=== PATIENT | female | born 1975 | race Caucasian/White ===

== ENCOUNTER 2019-12-10 08:45 | Outpatient (CLI) | payer BC, SELFPAY ==
--- NOTE | ~2019-12-10 | MM_ITS ---
EXAMINATION: MM screening [facility] BI w sneha HISTORY: Screening mammogram TECHNIQUE: Craniocaudal and mediolateral oblique 3-D tomosynthesis images were obtained and synthetic 2-D images were generated. CAD analysis was submitted and interpreted. COMPARISON: 09/28/2018, 08/29/2017, 05/17/2016 bilateral digital screening mammogram examinations BREAST PARENCHYMAL COMPOSITION: There are scattered areas of fibroglandular density. FINDINGS: Small benign circumscribed intramammary lymph nodes are stable on the right. There is no ev idence of suspicious mass, calcification, or architectural distortion to suggest malignancy in either breast. There has been no suspicious interval change. IMPRESSION: 1. No mammographic evidence of malignancy. 2. Recommend routine screening mammography in one year. BI-RADS Category 2: Benign finding(s). Reviewed, dictated and finalized at location A. D RANGE
== END 2019-12-10 08:46 | disposition home or self-care (01) ==
PROVIDERS: PCP Family Medicine; Visit Provider Family Medicine
DX: Z12.31 Encounter for screening mammogram for malignant neoplasm of breast (principal)
CPT/HCPCS: 77063; 77067

== ENCOUNTER 2020-07-28 13:01 | Outpatient (NON) | payer BC, SELFPAY ==
[2020-07-28 22:56] LABS: SARS-CoV-2 RNA PCR Negative
== END 2020-07-28 13:02 ==
PROVIDERS: PCP Family Medicine; Visit Provider Family Medicine
DX: Z20.828 Contact with and (suspected) exposure to other viral communicable diseases (principal); J02.9 Acute pharyngitis, unspecified; R05 Cough
CPT/HCPCS: 87635; C9803; U0003

== ENCOUNTER 2021-01-26 15:05 | Outpatient (CLI) | payer BC, SELFPAY ==
--- NOTE | ~2021-01-26 | MM_ITS ---
EXAMINATION: MM screening [facility] BI w sneha HISTORY: Screening mammogram TECHNIQUE: Craniocaudal and mediolateral oblique 3-D tomosynthesis images were obtained and synthetic 2-D images were generated. CAD analysis was submitted and interpreted. COMPARISON: 12/10/2019, 09/28/2018, 08/29/2017 BREAST PARENCHYMAL COMPOSITION: There are scattered areas of fibroglandular density. FINDINGS: Again noted are stable masses in the upper outer quadrant of the right breast, considered b enign given the lack of interval change. There is no evidence of suspicious mass, calcification, or a rchitectural distortion to suggest malignancy in either breast. There has been no suspicious interval change. IMPRESSION: 1. No mammographic evidence of malignancy. 2. Recommend routine screening mammography in one year. BI-RADS Category 2: Benign finding(s). Reviewed, dictated and finalized at location A.
== END 2021-01-26 15:06 | disposition home or self-care (01) ==
LOC: ANHIMG 15:09
PROVIDERS: PCP Nurse Practitioner Family; Visit Provider Nurse Practitioner Family
DX: Z12.31 Encounter for screening mammogram for malignant neoplasm of breast (principal)
CPT/HCPCS: 77063; 77067

== ENCOUNTER 2022-01-14 07:59 | Outpatient (CLI) | payer BC, SELFPAY ==
--- NOTE | ~2022-01-14 | XR_ITS ---
EXAMINATION: XR sacroiliac joints min 3V DATE: 01/14/2022 08:20 INDICATION: Ankylosing spondylitis TECHNIQUE: AP and left and right oblique views of the sacroiliac joints were obtained. COMPARISON: None. FINDINGS: Alignment is normal. No fracture. Bilateral hip and sacroiliac joint spaces appear normal. No erosion s to suggest inflammatory sacroiliitis. Moderate to severe bilateral lower lumbar facet osteoarthriti s. Several phleboliths in the pelvis. IMPRESSION: 1. Normal bilateral sacroiliac joints with no erosions to suggest an inflammatory sacroiliitis. 2. Moderate to severe bilateral lower lumbar facet osteoarthritis. Reviewed, dictated and finalized at location B. IMPRESSION: 1. Normal bilateral sacroiliac joints with no erosions to suggest an inflammato ry sacroiliitis. 2. Moderate to severe bilateral lower lumbar facet osteoarthritis.
--- NOTE | ~2022-01-14 | XR_ITS ---
EXAMINATION: XR knee LT 3V, XR knee RT 3V DATE: 01/14/2022 08:20 INDICATION: Ankylosing spondylitis TECHNIQUE: 1. Weight bearing anteroposterior, sunrise and flexed lateral views of the left knee were obtained 2. Weight bearing anteroposterior, sunrise and flexed lateral views of the right knee were obtained COMPARISON: None. FINDINGS: Alignment is normal at the bilateral knees. No fracture. Joint spaces are normal. Tiny marginal oste ophytes in the medial and patellofemoral compartments. No joint effusion/layering lipohemarthrosis. S oft tissues are unremarkable. IMPRESSION: 1. Minimal osteoarthritis at the bilateral knees with tiny marginal osteophytes but relatively preser dax joint spaces. Reviewed, dictated and finalized at location B. IMPRESSION: 1. Minimal osteoarthritis at the bilateral knees with tiny marginal osteophytes but relatively preserved joint spaces.
== END 2022-01-14 08:00 | disposition home or self-care (01) ==
PROVIDERS: PCP Family Medicine; Visit Provider Internal Medicine
DX: M45.9 Ankylosing spondylitis of unspecified sites in spine (principal); M77.9 Enthesopathy, unspecified; M51.36 Other intervertebral disc degeneration, lumbar region; M17.0 Bilateral primary osteoarthritis of knee
CPT/HCPCS: 72202; 73562

== ENCOUNTER 2022-10-14 14:00 | Outpatient (CLI) | payer BC, SELFPAY ==
--- NOTE | 2022-10-14 14:09 | ECHO_ITS ---
Patient Info Name: Jeannie Jonas Age: 47 years : 1975 Gender: Female Ht: 66 in Wt: 235 lbs BSA: 2.28 m2 HR: 65 bpm BP: 120 / 82 mmHg Technical Quality: Good Exam Date: 10/14/2022 2:31 PM Exam Location: [facility] Patient Status: Outpatient Admit Date: 10/14/2022 Staff Ordering Physician: Yoko Gray NP Licensed Appraiser: Stephanie Merchant RDCS Attending Provider: Yoko Gray NP Referring Physician: Marina COLE; Exam Type: CA echo doppler color flow Study Info Indications R60.0 - Localized edema Complete two-dimensional, color flow and Doppler transthoracic echocardiogram is performed. Summary 1. Complete two-dimensional, color flow and Doppler transthoracic echocardiogram is performed. 2. Left ventricular chamber dimension is normal. 3. Left ventricular systolic function is normal, estimated at 65-70%. 4. The left ventricular diastolic function is grade I diastolic dysfunction. 5. E/e' 6 is not elevated. 6. Left atrial chamber dimension is mildly enlarged. 7. There is mild aortic valve sclerosis. 8. The mitral valve has mildly calcified annulus. 9. There is trace mitral valve regurgitation. Left Ventricle E/e' 6 is not elevated. Left ventricular chamber dimension is normal. Left ventricular systolic function is normal, estimated at 65-70%. The left ventricular diastolic function is grade I diastolic dysfunction. Right Ventricle Right ventricular systolic function is normal and with normal TAPSE 1.7 cm. Right ventricular chamber dimension is normal. Left Atria Left atrial chamber dimension is mildly enlarged. Right Atria Right atrial chamber dimension is normal. Aortic Valve The aortic valve is trileaflet. There is mild aortic valve sclerosis. There is no aortic valve stenosis. There is no aortic valve regurgitation. Pulmonic Valve There is no pulmonic regurgitation. Mitral Valve The mitral valve has mildly calcified annulus. There is no mitral valve stenosis. There is trace mitral valve regurgitation. Tricuspid Valve There is no tricuspid valve regurgitation. Pericardium/Pleural There is no pericardial effusion. Inferior Vena Cava Normal inferior vena cava with >50% collapse upon inspiration consistent with normal right atrial pressure, 5 mmHg. Aorta The aortic root size at the sinus of Valsalva is normal. Left Ventricular Outflow Tract Name Value Normal LVOT 2D LVOT Diameter 2.0 cm LVOT Doppler LVOT Peak Gradient 4 mmHg LVOT Mean Gradient 2 mmHg LVOT VTI 23 cm LVOT VTI/AV VTI Ratio 0.9 LVOT Stroke Volume 70 ml LVOT CO 4.8 l/min LVOT CI 2.1 l/min/m2 Mitral Valve Name Value Normal MV Doppler
== END 2022-10-14 14:01 | disposition home or self-care (01) ==
PROVIDERS: PCP Family Medicine; Visit Provider Nurse Practitioner Family
DX: R60.0 Localized edema (principal)
CPT/HCPCS: 93306

== ENCOUNTER 2022-11-05 03:18 | Day surgery (SDC) | payer BC, SELFPAY ==
[2022-10-20 12:03] VITALS: BMI 38.0
[2022-11-05 08:14] VITALS: BP 132/75; PULSE 69; RESP 18; TEMP 36.6; O2SAT 98
[2022-11-05] MEDS: LACTATED RINGERS 1,000 ML 150 ML IV CONT (08:17)
--- NOTE | 2022-11-05 08:35 | WPDANESEPPF ---
Anes - Initial Pre Proc Eval Procedure: Operation Date: 11/05/22 09:15 Proposed Procedures p Colonoscopy - Alejandro Thibodeaux MD Date/Time: 11/05/22 08:35 Surgeon: Alejandro Thibodeaux MD Pre Op Diagnosis: melena Patient Data Age: 47 Gender: F Height: 1.68 m Weight: 105.3 kg Last Vital Signs Temp 36.6 C 11/05/22 08:14 Pulse 69 11/05/22 08:14 Resp 18 11/05/22 08:14 BP 132/75 11/05/22 08:14 Pulse Ox 98 11/05/22 08:14 O2 Del Method Room Air 11/05/22 08:14 Allergies Allergy/AdvReac Type Severity Reaction Status Date / Time No Known Allergies Allergy Verified 11/05/22 08:13 Home Medications Medication Instructions Recorded Confirmed Type cetirizine 10 mg capsule (Zyrtec) 10 mg PO DAILY 02/15/20 11/05/22 History meloxicam 7.5 mg tablet 7.5 mg PO DAILY 01/05/22 11/05/22 History multivitamin-ferrous 1 tablet PO DAILY 10/20/22 11/05/22 History fumarate-folic acid 18 mg-400 mcg tablet (Centrum Women) psyllium husk 3.4 gram/5.4 gram 2 tbsp PO DAILY 10/20/22 11/05/22 History oral powder (Metamucil) Patient hx anesthesia problems: none Family hx anesthesia problems: none Results Review: All pre-operative results and documents have been reviewed as part of the pre-operative evaluation. [facility] Past Medical History Medical History (Updated 10/22/22 @ 13:53 by Yoko Gray NP) Ankylosing spondylitis right hip GERD without esophagitis History of shingles (~2014) Hyperlipidemia Obesity Surgical History Surgical History History of low transverse section (~2010) Family History Family History Sibling Natural with unknown cause, Onset Age: 43 h/o DM, tobacco use, obesity, h/a Sibling Colon polyp, Onset Age: 53 Father Cerebrovascular accident Mother Family history of arthritis Sibling Family history of diabetes mellitus in first degree relative Social History Social History (Updated 09/24/22 @ 12:59 by Enriqueta Mcarthur [facility]) Smoking status: Never smoker Second hand tobacco smoke exposure: No Additional smoking assessment comments: lived with a chain smoker Alcohol intake: current Drinks per week: 6 Substance use: never Substance use type: does not use Lack of Transportation: No Lack of Food: Never True Current Housing: I Have Housing Concerned About Future Housing: No Difficulty Paying Gas/Electric Bills: No Difficulty Paying for Meds: No Currently Unemployed: No Education: Decline to Answer Difficulty w/ Childcare or Family Care: No Living arrangements: with family 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/Education: 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 Informed Consent: The patient's anesthetic plan and its attendant risks and benefits were discussed with the patient/family/POA. Questions were solicited and answers provided to the satisfaction of the patient/family/POA.
--- NOTE | 2022-11-05 09:01 | PM.HPGS ---
History of Present Illness History of Present Illness Consent: Risks, benefits, and alternatives have been discussed and questions answered. Patient agrees to proceed with procedure. Chief complaint: melena Narrative: Jeannie Jonas is a 47 year old female here for first colonoscopy, also noted few times blood in stool Review of Systems Constitutional: Constitutional: Denies headache(s) and Denies weakness Eyes: Eyes: Denies blurry vision ENT: Reports Normal hearing present, Denies headache(s) and Denies neck pain Cardiovascular: Cardiovascular: Denies chest pain and Denies dyspnea Respiratory: Respiratory: Denies dyspnea Gastrointestinal: Gastrointestinal: Reports no additional gastrointestinal complaints Genitourinary: Genitourinary: Denies dysuria Musculoskeletal: Musculoskeletal: Denies neck pain Integumentary/Breasts: Skin/Breast: Denies dry skin Neurologic: Reports Normal hearing present, Denies headache(s) and Denies weakness Psychiatric: Psychiatric: Denies anxiety Endocrine: Endocrine: Denies change in body appearance Hematologic/Lymphatic: Hematologic/Lymphatic: Denies easy bleeding Allergic/Immunologic: Allergic/Immunologic: Denies urticaria PMF Past Medical History Medical History (Updated 11/05/22 @ 09:02 by Alejandro Thibodeaux MD) Ankylosing spondylitis right hip Colon cancer screening GERD without esophagitis History of shingles (~2014) Hyperlipidemia Obesity Rectal bleeding Surgical History Surgical History History of low transverse section (~2010) Family History Family History Sibling Natural with unknown cause, Onset Age: 43 h/o DM, tobacco use, obesity, h/a Sibling Colon polyp, Onset Age: 53 Father Cerebrovascular accident Mother Family history of arthritis Sibling Family history of diabetes mellitus in first degree relative Social History Social History (Updated 09/24/22 @ 12:59 by Enriqueta Mcarthur [facility]) Smoking status: Never smoker Second hand tobacco smoke exposure: No Additional smoking assessment comments: lived with a chain smoker Alcohol intake: current Drinks per week: 6 Substance use: never Substance use type: does not use Lack of Transportation: No Lack of Food: Never True Current Housing: I Have Housing Concerned About Future Housing: No Difficulty Paying Gas/Electric Bills: No Difficulty Paying for Meds: No Currently Unemployed: No Education: Decline to Answer Difficulty w/ Childcare or Family Care: No Living arrangements: with family Occupation/Education: occupation 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 Gender identity (if verbalized by the patient): Female Spiritual care concerns: No Meds Home Medications and Allergies Home Medications Medication Instructions Recorded Confirmed Type cetirizine 10 mg capsule (Zyrtec) 10 mg PO DAILY 02/15/20 11/05/22 History meloxicam 7.5 mg tablet 7.5 mg PO DAILY 01/05/22 11/05/22 History multivitamin-ferrous 1 tablet PO DAILY 10/20/22 11/05/22 History fumarate-folic acid 18 mg-400 mcg tablet (Centrum Women) psyllium husk 3.4 gram/5.4 gram 2 tbsp PO DAILY 10/20/22 11/05/22 History oral powder (Metamucil) Allergies Allergy/AdvReac Type Severity Reaction Status Date / Time No Known Allergies Allergy Verified 11/05/22 08:13 Vital Signs Vital Signs - 24 hr 11/05/22 08:14 Temperature 98 F Pulse Rate 69 Respiratory Rate 18 Blood Pressure 132/75 Pulse Oximetry 98 Oxygen Delivery Room Air Exam Const: General: comfortable and no acute distress HENMT: Face/Nose/Sinus: Normal nares present Eyes: General: appearance normal, both eyes and all related structures Neck: Neck: no JVD Resp: Auscultation: clear to auscultation bilaterally Cardio: Rate:
[2022-11-05 09:25] VITALS: BP 97/51; PULSE 74; RESP 20; O2SAT 96
[2022-11-05 09:35] VITALS: BP 107/59; PULSE 64; RESP 20; O2SAT 99
[2022-11-05 09:45] VITALS: BP 111/62; PULSE 58; RESP 20; O2SAT 99
== END 2022-11-05 09:51 | disposition home or self-care (01) ==
PROVIDERS: PCP Family Medicine; Visit Provider Internal Medicine Gastroenterology
PROC: 0DJD8ZZ Inspection of Lower Intestinal Tract, Via Natural or Artificial Opening Endoscopic (ICD-10-PCS; CPT 45378; principal; 2022-11-05 09:15)
DX: Z12.11 Encounter for screening for malignant neoplasm of colon (principal); K92.1 Melena; K57.30 Diverticulosis of large intestine without perforation or abscess without bleeding; K63.5 Polyp of colon; K64.8 Other hemorrhoids; E78.5 Hyperlipidemia, unspecified; K21.9 Gastro-esophageal reflux disease without esophagitis; E66.9 Obesity, unspecified; Z68.37 Body mass index [BMI] 37.0-37.9, adult
CPT/HCPCS: 45385; 88305; J2001; J2704; J7120

== ENCOUNTER 2022-11-15 07:20 | Outpatient (CLI) | payer BC, SELFPAY ==
--- NOTE | ~2022-11-15 | MM_ITS ---
EXAMINATION: MM screening [facility] BI w sneha HISTORY: Screening mammogram TECHNIQUE: Craniocaudal and mediolateral oblique 3-D tomosynthesis images were obtained and synthetic 2-D images were generated. CAD analysis was submitted and interpreted. COMPARISON: 01/26/2021, 12/10/2019, 09/28/2008 screening mammogram examinations BREAST PARENCHYMAL COMPOSITION: There are scattered areas of fibroglandular density. FINDINGS: There are 2 benign circumscribed intramammary lymph nodes in the mid to upper outer right b reast. There is no evidence of suspicious mass, calcification, or architectural distortion to suggest malignancy in either breast. There has been no suspicious interval change. IMPRESSION: 1. No mammographic evidence of malignancy. 2. Recommend routine screening mammography in one year. BI-RADS Category 2: Benign finding(s). Reviewed, dictated and finalized at location A. OM SCRUBBER
== END 2022-11-15 07:21 | disposition home or self-care (01) ==
LOC: ANHIMG 07:24
PROVIDERS: PCP Family Medicine; Visit Provider Nurse Practitioner Family
DX: Z12.31 Encounter for screening mammogram for malignant neoplasm of breast (principal)
CPT/HCPCS: 77063; 77067

== ENCOUNTER 2023-05-23 08:15 | Outpatient (CLI) | payer BC, SELFPAY ==
[2023-05-23 12:10] LABS: Kit Draw Collected
== END 2023-05-23 08:16 | disposition home or self-care (01) ==
LOC: ANHGOSHLAB 08:18
PROVIDERS: PCP Family Medicine; Visit Provider Nurse Practitioner Family
DX: R00.2 Palpitations (principal); E78.5 Hyperlipidemia, unspecified
CPT/HCPCS: 36415

== ENCOUNTER 2023-08-23 10:57 | Emergency (ER) | payer BC, SELFPAY ==
--- NOTE | ~2023-08-23 | XR_ITS ---
EXAMINATION: XR tibia fibula LT 2V DATE: 08/23/2023 15:40 INDICATION: Left lower leg pain. TECHNIQUE: 2 views of left tibia and fibula were obtained. COMPARISON: None. FINDINGS: Bone alignment is normal. No fracture. There is mild tricompartmental osteoarthritis of the knee. IMPRESSION: 1. Mild left knee osteoarthritis. Reviewed, dictated and finalized at location A. RICT OR DISTRICT OFFICE DIRECTOR
--- NOTE | ~2023-08-23 | US_ITS ---
US venous doppler [facility] DATE: 08/23/2023 12:07 INDICATION: Left leg pain TECHNIQUE: Real-time and color flow imaging and Doppler analysis of the veins of the left lower extre mity COMPARISON: None FINDINGS: Left greater saphenous vein is patent. There is spontaneous and phasic flow and normal augm entation and color flow signal and normal compression of the deep veins of the left lower extremity. IMPRESSION: No evidence of deep venous thrombosis of left lower extremity Reviewed, dictated and finalized at Location A. Reviewed, dictated and finalized at location L. NUE MANAGER
[2023-08-23 11:02] VITALS: BP 141/63; PULSE 90; RESP 18; TEMP 36.5; O2SAT 97
--- NOTE | 2023-08-23 15:27 | ED.GENADULT ---
HPI - General Adult General Chief complaint: Extremity Injury, Lower Stated complaint: pain in left leg Time Seen by Provider: 08/23/23 14:50 Source: patient Limitations: no limitations History of Present Illness HPI narrative: Patient is a 48-year-old female presents to the emergency department complaining of left calf pain that she noticed this morning gradually has been intermittent since onset, describes it as a severe pain, has had no setting for cannot make it go away, has not started for the pain, denies any history of pain in the past patient denies any preceding injury or strenuous activity. Patient has been ambulatory without any difficulty. Patient states that apparently after does not radiate. Patient denies fever, numbness, weakness, pain in her house trauma history of blood clots, unilateral lower extremity swelling. Related Data Home Medications Medication Instructions Recorded Confirmed cetirizine 10 mg capsule (Zyrtec) 10 mg PO DAILY 02/15/20 11/19/22 meloxicam 7.5 mg tablet 7.5 mg PO DAILY 01/05/22 11/19/22 multivitamin-ferrous 1 tablet PO DAILY 10/20/22 11/19/22 fumarate-folic acid 18 mg-400 mcg tablet (Centrum Women) psyllium husk 3.4 gram/5.4 gram 2 tbsp PO DAILY 10/20/22 11/19/22 oral powder (Metamucil) Allergies Allergy/AdvReac Type Severity Reaction Status Date / Time No Known Allergies Allergy Verified 08/23/23 11:07 Review of Systems Review of Systems: A 10 system review of systems was completed on the patient and is negative except for what is stated in the HPI. Nursing and ancillary documentation was reviewed. [facility] Past Medical History Medical History Ankylosing spondylitis right hip Colon cancer screening GERD without esophagitis History of shingles (~2014) Hyperlipidemia Obesity Rectal bleeding Surgical History Surgical History History of low transverse section (~2010) Family History Family History Sibling Natural with unknown cause, Onset Age: 43 h/o DM, tobacco use, obesity, h/a Sibling Colon polyp, Onset Age: 53 Father Cerebrovascular accident Mother Family history of arthritis Sibling Family history of diabetes mellitus in first degree relative Social History Social History Smoking status: Never smoker Second hand tobacco smoke exposure: No Additional smoking assessment comments: lived with a chain smoker Alcohol intake: current Drinks per week: 6 Substance use: never Substance use type: does not use Lack of Transportation: No Lack of Food: Never True Current Housing: I Have Housing Concerned About Future Housing: No Difficulty Paying Gas/Electric Bills: No Difficulty Paying for Meds: No Currently Unemployed: No Education: Decline to Answer Difficulty w/ Childcare or Family Care: No Living arrangements: with family Occupation/Education: occupation 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 Please see the nursing chart for further information. There is no relevant family history pertinent to the presenting complaint. Exam Narrative: CONST: No acute distress. Well nourished. HENMT: Head is normocephalic and atraumatic. Moist mucous membranes. RESP: Able to speak in full sentences. Normal respiratory effort. CARDIO: Regular rate. Regular rhythm. 2+ DP pulses bilaterally. SKIN: No rashes or lesions noted on exposed skin. NEURO: Oriented x3. Moves all extremities. Sensation intact to light touch throu
[2023-08-23] MEDS: ACETAMINOPHEN 500 MG TABLET 1000 MG PO (15:42)
--- NOTE | 2023-08-23 15:43 | PC.NURSE ---
tylenol given per order. waiting official result of xray. pt denies pain at this time. states leg was throbbing earlier.
== END 2023-08-23 16:13 | disposition home or self-care (01) ==
PROVIDERS: Emergency Provider Student in an Organized Health Care Education/Training Program; PCP Family Medicine
DX: M79.662 Pain in left lower leg (principal); E78.5 Hyperlipidemia, unspecified
CPT/HCPCS: 73590; 93971; 99284; A9270

== ENCOUNTER 2023-08-31 08:22 | Outpatient (CLI) | payer BC, SELFPAY ==
[2023-08-31 12:20] LABS: Alanine Aminotransferase 24 U/L (6-35); Albumin Level 4.3 g/dL (3.5-5.1); Alkaline Phosphatase 65 U/L (38-126); Aspartate Amino Transferase 24 U/L (14-36); Bilirubin,Total 0.6 mg/dL (0.2-1.3)
== END 2023-08-31 08:23 | disposition home or self-care (01) ==
LOC: ANHGOSHLAB 08:25
PROVIDERS: PCP Family Medicine
DX: B35.1 Tinea unguium (principal)
CPT/HCPCS: 36415; 80076

== ENCOUNTER 2023-10-17 14:07 | Outpatient (CLI) | payer BC, SELFPAY ==
[2023-10-17 20:27] LABS: Alanine Aminotransferase 25 U/L (6-35); Albumin Level 4.4 g/dL (3.5-5.1); Alkaline Phosphatase 75 U/L (38-126); Aspartate Amino Transferase 28 U/L (14-36); Bilirubin,Total 0.3 mg/dL (0.2-1.3)
== END 2023-10-17 14:08 | disposition home or self-care (01) ==
LOC: ANHGOSHLAB 14:09
PROVIDERS: PCP Family Medicine; Visit Provider Podiatrist Foot & Ankle Surgery
DX: B35.1 Tinea unguium (principal)
CPT/HCPCS: 36415; 80076

== ENCOUNTER 2023-10-20 14:31 | Outpatient (CLI) | payer BC, SELFPAY ==
--- NOTE | 2023-10-20 14:49 | ECHO_ITS ---
Patient Info Name: Jeannie Jonas Age: 48 years : 1975 Gender: Female Ht: 66 in Wt: 225 lbs BSA: 2.22 m2 HR: 74 bpm BP: 127 / 86 mmHg Heart Rhythm: Sinus Rhythm Technical Quality: Good Exam Date: 10/20/2023 3:10 PM Exam Location: Echo Lab Patient Status: Outpatient Admit Date: 10/20/2023 Staff Ordering Physician: Levi White DO Feather Shaper: Luis E Garcia RDCS Attending Provider: Levi White DO Referring Physician: Christopher BORGES; Exam Type: CA echo doppler color flow Study Info Indications - sclertoic aortic valve Complete two-dimensional, color flow and Doppler transthoracic echocardiogram is performed. Summary 1. Complete two-dimensional, color flow and Doppler transthoracic echocardiogram is performed. 2. Left ventricular chamber dimension is normal. 3. Left ventricular systolic function is normal, estimated at 60-65%. 4. The left ventricular diastolic function is normal. 5. E/e' 9 is minimally elevated. 6. Left atrial chamber dimension is mildly enlarged. 7. There is mild aortic valve sclerosis. 8. There is trace mitral valve regurgitation. 9. There is trace tricuspid valve regurgitation. 10. No pulmonary hypertension, estimated pulmonary arterial systolic pressure is 24 mmHg. Left Ventricle E/e' 9 is minimally elevated. Left ventricular chamber dimension is normal. Left ventricular systolic function is normal, estimated at 60-65%. The left ventricular diastolic function is normal. Right Ventricle Right ventricular systolic function is normal and with normal TAPSE 2.3 cm. Right ventricular chamber dimension is normal. Left Atria Left atrial chamber dimension is mildly enlarged. Right Atria Right atrial chamber dimension is normal. Aortic Valve The aortic valve is trileaflet. There is mild aortic valve sclerosis. There is no aortic valve stenosis. There is no aortic valve regurgitation. Pulmonic Valve There is no pulmonic regurgitation. Mitral Valve There is no mitral valve stenosis. There is trace mitral valve regurgitation. Tricuspid Valve There is trace tricuspid valve regurgitation. No pulmonary hypertension, estimated pulmonary arterial systolic pressure is 24 mmHg. Pericardium/Pleural There is no pericardial effusion. Inferior Vena Cava Normal inferior vena cava with >50% collapse upon inspiration consistent with normal right atrial pressure, 5 mmHg. Aorta The aortic root size at the sinus of Valsalva is normal. Left Ventricular Outflow Tract Name Value Normal LVOT 2D LVOT Diameter 2.0 cm LVOT Doppler LVOT Peak Gradient 4 mmHg LVOT Mean Gradient 2 mmHg LVOT VTI 23 cm LVOT VTI/AV VTI Ratio 0.7 LVOT Stroke Volume 71 ml LVOT CO 5.3 l/min LVOT CI 2.4 l/min/m2 Pulmonic Valve Name Value Normal RVOT Doppler
== END 2023-10-20 14:32 | disposition home or self-care (01) ==
PROVIDERS: PCP Family Medicine; Visit Provider Internal Medicine Cardiovascular Disease
DX: I35.8 Other nonrheumatic aortic valve disorders (principal)
CPT/HCPCS: 93306

== ENCOUNTER → 2023-11-24 07:10 | Outpatient (CLI) | payer BC, SELFPAY ==
--- NOTE | ~2023-11-24 | MM_ITS ---
EXAMINATION: MM screening [facility] BI w sneha HISTORY: Screening mammogram TECHNIQUE: Craniocaudal and mediolateral oblique 3-D tomosynthesis images were obtained and synthetic 2-D images were generated. CAD analysis was submitted and interpreted. COMPARISON: 11/15/2022, 01/26/2021, 12/10/2019 BREAST PARENCHYMAL COMPOSITION: There are scattered areas of fibroglandular density. FINDINGS: Stable masses are again noted in the upper outer quadrant of the right breast, considered b enign given the lack of interval change. No suspicious mass, calcification, or architectural distorti on are identified in either breast to suggest malignancy. There has been no suspicious interval martínez e. IMPRESSION: 1. No mammographic evidence of malignancy. 2. Recommend routine screening mammography in one year. BI-RADS Category 2: Benign finding(s). Reviewed, dictated and finalized at location A. AGE WRAPPER
== END ==
PROVIDERS: PCP Family Medicine; Visit Provider Family Medicine
DX: Z12.31 Encounter for screening mammogram for malignant neoplasm of breast (principal)
CPT/HCPCS: 77063; 77067

== ENCOUNTER 2024-07-25 08:10 | Outpatient (CLI) | payer BC, SELFPAY ==
--- NOTE | ~2024-07-25 | US_ITS ---
EXAMINATION: US soft tissue chest DATE: 07/25/2024 08:23 INDICATION: Cyst with increasing palpable lump near the tip of the sternum TECHNIQUE: Multiple grayscale and Doppler ultrasound images of the subcutaneous tissues at the region of concern overlying the xiphoid were obtained. COMPARISON: None FINDINGS: There is an 8 x 6 x 7 mm mixed hypoechoic and anechoic complex cystic lesion with posterior acoustic enhancement centered at the dermal/subdermal junction at the region of concern. There is vascular tori w on color Doppler at the periphery of the lesion without definitive color flow within the central hy poechoic components. There is a subtle hypoechoic tract extending towards the skin surface which woul d be most consistent with an epidermoid cyst/sebaceous cyst. IMPRESSION: 1. Superficial 8 x 6 x 7 mm complex subcutaneous cystic lesion with tract extending to skin surface m ost consistent with an epidermoid/sebaceous cyst with differential including draining abscess in the appropriate clinical setting. Reviewed, dictated and finalized at location A. IMPRESSION: 1. Superficial 8 x 6 x 7 mm complex subcutaneous cystic lesion with tract exten ding to skin surface most consistent with an epidermoid/sebaceous cyst with dif ferential including draining abscess in the appropriate clinical setting.
== END 2024-07-25 08:11 | disposition home or self-care (01) ==
LOC: GOSHIMG 08:11
PROVIDERS: PCP Family Medicine; Visit Provider Nurse Practitioner Family
DX: L72.9 Follicular cyst of the skin and subcutaneous tissue, unspecified (principal)
CPT/HCPCS: 76604

== ENCOUNTER 2024-07-25 08:27 | Outpatient (CLI) | payer BC, SELFPAY ==
[2024-07-25 16:50] LABS: Basophils Absolute Auto 0.1 K/mm3 (0.0-0.1); Eosinophils Absolute Auto 0.4 K/mm3 (0-0.3); Eosinophils Percent Auto 5.9 % (0-4.4); Hematocrit 41.6 % (37.0-47.0); Hemoglobin 13.7 g/dL (12.0-15.0); Immature Granulocyte Absolute 0.02 K/mm3 (0.00-0.031); Immature Granulocyte Percent A 0.3 % (0-0.5); Lymphocytes Absolute Auto 1.35 K/mm3 (0.9-3.2); Lymphocytes Percent Auto 22.7 % (18.3-44.2); Mean Corpuscular HGB Conc 32.9 g/dl (32-36); Mean Corpuscular Hemoglobin 29.5 pg (26-34); Mean Corpuscular Volume 89.7 fl (80-100); Mean Platelet Volume 11.6 fl (7.4-10.4); Monocytes Absolute Auto 0.5 K/mm3 (0.1-0.6); Monocytes Percent Auto 7.6 % (2.6-8.5); Neutrophils Absolute Auto 3.7 K/mm3 (1.3-6.7); Neutrophils Percent Auto 62.5 % (45.5-73.1); Platelet Count Result 236 k/mm3 (150-375); Red Blood Count 4.64 M/mm3 (4.2-5.4); Red Cell Distribution Width 13.8 % (11.5-14.5)
[2024-07-25 17:11] LABS: Vitamin D 25 Hydroxy 64.2 ng/mL
[2024-07-25 17:20] LABS: Hemoglobin A1C 5.7 % (<5.7)
[2024-07-25 19:17] LABS: Alanine Aminotransferase 27 U/L (6-35); Albumin Level 4.3 g/dL (3.5-5.1); Alkaline Phosphatase 74 U/L (38-126); Anion Gap 11 mmol/L (4-12); Aspartate Amino Transferase 31 U/L (14-36); Bilirubin,Total 0.6 mg/dL (0.2-1.3); Blood Urea Nitrogen 15 mg/dL (7-17); Calcium 9.6 mg/dL (8.4-10.2); Carbon Dioxide 23 mmol/L (22-30); Chloride 105 mmol/L (98-107); Cholesterol 222 mg/dL (0-200); Estimated Glomerular Filt Rate > 60; Glucose 93 mg/dL (65-110); HDL Direct 51 mg/dL; Potassium 4.3 mmol/L (3.4-5.0); Sodium 139 mmol/L (137-145); Triglycerides 134 mg/dL (<150)
[2024-07-25 19:27] LABS: LDL Cholesterol Direct 114 mg/dL
== END 2024-07-25 08:28 | disposition home or self-care (01) ==
LOC: ANHGOSHLAB 08:29
PROVIDERS: PCP Family Medicine; Visit Provider Nurse Practitioner Family
DX: Z00.00 Encounter for general adult medical examination without abnormal findings (principal); E78.5 Hyperlipidemia, unspecified; E55.9 Vitamin D deficiency, unspecified; R73.01 Impaired fasting glucose
CPT/HCPCS: 36415; 80053; 80061; 82306; 83036; 84443; 85025

== ENCOUNTER 2024-12-28 12:00 | Outpatient (CLI) | payer BC, SELFPAY ==
--- NOTE | ~2024-12-28 | MM_ITS ---
EXAMINATION: MM screening ryne BI w sneha HISTORY: Screening TECHNIQUE: Craniocaudal and mediolateral oblique 3-D tomosynthesis images were obtained and synthetic 2-D images were generated. CAD analysis was submitted and interpreted. COMPARISON: Comparison to multiple prior studies sequentially, with oldest reviewed study dated 08/11. BREAST PARENCHYMAL COMPOSITION: There are scattered areas of fibroglandular density. FINDINGS: There is no evidence of suspicious mass, calcification, or architectural distortion to sugg est malignancy in either breast. There has been no suspicious interval change. IMPRESSION: 1. No mammographic evidence of malignancy. 2. Recommend routine screening mammography in one year. BI-RADS Category 1: Negative Reviewed, dictated and finalized at location B.
== END 2024-12-28 12:01 | disposition home or self-care (01) ==
LOC: MICIMG 12:08
PROVIDERS: PCP Nurse Practitioner Family; Visit Provider Nurse Practitioner Family
DX: Z12.31 Encounter for screening mammogram for malignant neoplasm of breast (principal)
CPT/HCPCS: 77063; 77067

== ENCOUNTER 2025-03-11 16:53 | Outpatient (CLI) | payer BC, SELFPAY ==
--- OUTSIDE RECORDS SUMMARY | 2025-03-11 16:55 | XMS_ITS ---
Author Organization [facility] Address [address] [place], [place] [id number] Care Team Providers Care Heliotherapist Name Role Phone OVIDIO BERUMEN Unavailable [phone] Bryan Morrissey Unavailable Unavailable REASON FOR VISIT The patient reports that the cortisone injection helped her foot pain immensely. She wants her orthotics shortened so they work better under the liners in her HOKAS. She is also requesting more topical antifungal medication for her toenail.s, Lastly, she is wondering if Physical Therapy could help with her gait Medications Medication SIG (Take, Route, Frequency, Duration) Notes Start Date End Date Status ciclopirox 80 MG/ML Topical Solution ciclopirox 80 MG/ML Topical SolutionOriginal Medicationciclopirox 80 MG/ML Topical Solution *Reorder from [facility] for eRx and Interaction Alerts* 7 Active Medrol Dosepak ORAL Medrol DosepakOr iginal MedicationMedrol Dosepak *Reorder from [facility] for eRx and Interaction Alerts* 9 Active Ciclopirox 8 % 1 application Externally Once a day to toenails. for 30 days Remove medication weekly with rubbing alcohol. one bottle, 6.6mL or similar 5 025 Active terbinafine 250 MG Oral Tablet ORAL terbinafine 250 MG Oral TabletOriginal Medicationterbinafine 250 MG Oral Tablet *Reorder from [facility] for eRx and Interaction Alerts* 9 Active methylPREDNISolone 4 MG as directed Orally one pack 4 Active Vital Signs Height 66.00 in 01/14/2025 Weight 225 lbs 01/14/2025 BMI 36.31 kg/m2 01/14/2025 Height-cm 167.64 cm 01/14/2025 Weight-kg 102.06 kg 01/14/2025 Encounters Encounter Location Date Provider Diagnosis [facility] [address] [place], [place] [id number] 01/14/2025 OVIDIO SNOOK Pain in left ankle and joints of left foot M25.572 ; Posterior tibial tendinitis, left leg M76.822 ; Left foot pain M79.672 and Tinea unguium B35.1 Assessments Encounter Date Diagnosis (ICD Code) Assessment Notes Treatment Notes Treatment Clinical Notes Section Notes 01/14/2025 Pain in left ankle and joints of left foot (ICD-10 - M25.572) Sinus Tarsi Syndrome: I discussed anti-inflammatory treatment options and various means of immobilization with the patient. I educated the patient on icing and stretching, supportive shoegear, and the use of orthotic devices and bracing. Physical therapy ordered b 01/14/2025 Posterior tibial tendinitis, left leg (ICD-10 - M76.822) Posterior Tibialis Tendon Dysfunction: I discussed anti-inflammatory treatment options and various means of immobilization with the patient. I educated the patient on icing and stretching, supportive shoegear, and the use of orthotic devices and bracing. Orthotic Continue: Advised patient to continue to wear orthotic devices. b 01/14/2025 Left foot pain (ICD-10 - M79.672) b 01/14/2025 Tinea unguium (ICD-10 - B35.1) FUNGAL TOENAILS: Discussed various treatment options for fungal toenails including debridement, topical antifungals, oral antifungals, toenail avulsion, or toenail matrixectomy. b Plan Of Treatment Medication Medication Name Sig Start Date Stop Date Notes Ciclopirox 8 % 1 application Vacuum Cleaner Mechanic ally Once a day to toenails. for 30 days 01/14/2025 07/13/2025 one bottle, 6.6mL or similar Treatment Notes Assessment Notes Pain in left ankle and joint s of left foot Sinus Tarsi Syndrome: I discussed anti-inflammatory treatment options and various means of immobilization with the patient. I educated the patient on icing and stretching, supportive shoegear, and the use of orthotic devices and bracing. Physical therapy ordered Posterior tibial tendinitis, left leg Posterior Tibialis Tendon Dysfunction: I discussed anti-inflammatory treatment options and various means of immobilization with the patient. I educated the patient on icing and stretching, supportive shoegear, and the use of orthotic devices and bracing. Orthotic Continue: Advised patient to continue to wear orthotic devices. Tinea unguium FUNGAL TOENAILS: Dis cussed various treatment options for fungal toenails including debridement, topical antifungals, oral antifungals, toenail avulsion, or toenail matrixectomy. Next Appt Details Follow Up: prn, Reason: Progress Notes * MARY DELANEYEEDOB:03/1975 (49 yo F)Acc No.[id number]:01/14/2025 Patient: MARY GUSMAN Provider: Andria Berumen DPM :1975 A ge:49 Y S ex:Female Date:01/14/2025 Address:[address] [place] [address] Subjective: * Chief Complaints: * 1 . The patient reports that the cortisone injection helped her foot pain immensely. She wants her orthotics shortened so they work better under the liners in her HOKAS. She is also requesting more topical antifungal medication for her toenail.s. 2. Lastly, she is wondering if Physical Therapy could help with her gait. * HPI: H PI: Follow Up Visit Gary jane presents for follow-up visit for left foot injection. Patient states that she is feeling a huge improvement. She states that she is still having some slight pain, but it is nothing like it was before. She is happy with how it is feeling. , MA: phil. * ROS: G eneral / Constitutional: Patient denies c hills, fever, weakness, night sweats. M usculoskeletal: Patient denies c hildhood foot problems, weakness. P atva complains of h eel pain, arch pain, orthotic use. P eripheral Vascular: Patient denies u lceration of feet, cold extremities. ? S kin: Patient denies u lcerations, discoloration. P atient complains of f ungal nails, nail changes. N eurologic: Patient denies b alance difficulty, confusion, difficulty speaking, dizziness. * Medical History: * Family History: F ather: PRN - Father: :: Foot problem,,known absent , :: Stroke,,known absent , :: Arthritis,,known absent , :: Diabetes,,known absent . M other: PRN - Mother: :: Arthritis,,known absent . Brother: SIB - Brother: . S ister: SIB - Sister: :: of unknown cause,,known absent , :: Foot problem,,known absent . * Social History: M igrated Social History: M igrated Social History: Smoking Status : Never smoked , History of tobacco use : , Alcohol intake :. * Medications: T aking ciclopirox 80 MG/ML Topical Solution , Notes to Pharmacist: ciclopirox 80 MG/ML Topical SolutionOriginal Medicationciclopirox 80 MG/ML Topical Solution *Reorder from [facility] for eRx and Interaction Alerts*, Taking Medrol Dosepak ORAL , Notes to Pharmacist: Medrol DosepakOriginal MedicationMedrol Dosepak *Reorder from [facility] for eRx and Interaction Alerts*, Taking terbinafine 250 MG Oral Tablet ORAL , Notes to Pharmacist: terbinafine 250 MG Oral TabletOriginal Medicationterbinafine 250 MG Oral Tablet *Reorder from [facility] for eRx and Interaction Alerts*, Taking methylPREDNISolone 4 MG Tablet Therapy Pack as directed Orally , Notes to Pharmacist: one pack, Medication List reviewed and reconciled with the patient Objective: * Vitals: S hoe Size: 10, Wt:225lbs, Wt-k.06 kg, Ht: 66.00 in, Ht-cm: 167.64 cm, BMI:36.31Index, Body Surface Area: 2.18. * Examination: C onstitutional: Constitutional T he patient is awake, alert, well developed, well groomed and well nourished. D ermatologic: Skin findings: S kin is warm, dry, supple with no breaks in the skin. Nail pathology: N ails 1-5 bilateral are elongated, thick, discolored, and dystrophic with subungual debris. They are painful to palpation. ? V ascular: Dorsalis pedis pulse: 2 /4, bilateral. Posterior tibial pulse: 2 /4, bilateral. Capillary refill: l ess than 3 seconds. Edema: N o edema, bilateral. N eurologic: Gross sensation G ross sensation is intact to light touch.? M usculoskeletal: Muscle Strength M uscle strength is 5/5 in regards to dorsiflexion, plantarflexion, inversion, and eversion in bilateral lower extremities. Pain on palpation l ateral portal of the left sinus tarsi and with ROM of the subtalar joint.. Foot Structure T he foot structure is noted to be planus bilaterally. There is calcaneus valgus noted bilaterally. Assessment: * Assessment: 1. P ain in left ankle and joints of left foot - M25.572 (Primary) 2 . P osterior tibial tendinitis, left leg - M76.822 3 . L eft foot pain - M79.672 ? 4 . T inea unguium - B35.1 b Plan: * Treatment: 2. P osterior tibial tendinitis, left leg Notes: Posterior Tibialis Tendon Dysfunction: I discussed anti-inflammatory treatment options and various means of immobilization with the patient. I educated the patient on icing and stretching, supportive shoegear, and the use of orthotic devices and bracing. Orthotic Continue: Advised patient to continue to wear orthotic devices. 3. T inea unguium Start Ciclopirox Solution, 8 %, 1 application, Externally, Once a day to toenails. Remove medication weekly with rubbing alcohol., 30 days, 1, Refills 5, Notes to Pharmacist: one bottle, 6.6mL or similar. Notes: FUNGAL TOENAILS: Discussed various treatment options for fungal toenails including debridement, topical antifungals, oral antifungals, toenail avulsion, or toenail matrixectomy. * Follow Up: p rn * Billing Information: * Visit Code: 26130 Office Visit, Est Pt., Level 3. * Procedure Codes: * Electronic signature of OVIDIO BERUMEN DPM on 03/11/2025 at 04:55 PM CDT Sign off status: Pending * Provider: Andria Berumen DPM Date: 0 01/14/2025 Generated for Kelechi krause/Steven/Gibran on: 0 03/11/2025 04:55 PM CDT History and Physical Notes * HPI (History of Present Illness) Category Sub-Category Detail Notes Category Not es HPI Follow Up Visit Patient presents for follow-up visit for left foot injection. Patient states that she is feeling a huge improvement. She states that she is still having some slight pain, but it is nothing like it was before. She is happy with how it is feeling. , MA: [facility] Examination Category Sub-Category Detail Notes Category Not es Dermatologic Skin findings: Skin is warm, dr y, supple with no breaks in the skin Nail pathology: Nails 1-5 bilateral are elongated, thick, discolored, and dystrophic with subungual debris. They are painful to palpation Neurologic Gross sensation Gross sensation is intact to light touch Vascular Dorsalis pedis pulse: 2/4, bilateral Edema: No edema, bilateral Capillary refill: less than 3 seconds Posterior tibial pulse: 2/4, bilateral Musculoskeletal Muscle Strength Muscle strength is 5/5 in regards to dorsiflexion, plantarflexion, inversion, and eversion in bilateral lower extremities Pain on palpation lateral portal of th e left sinus tarsi and with ROM of the subtalar joint. Foot Structure The foot structure i s noted to be planus bilaterally. There is calcaneus valgus noted bilaterally Constitutional Constitutional The patient is a wake, alert, well developed, well groomed and well nourished
--- OUTSIDE RECORDS SUMMARY | 2025-03-11 16:55 | XMS_ITS | Clinical Summary ---
Author Organization [facility] Address [facility] [place] [address] Care Team Providers Care Signal Tester Name Role Phone Liyah Valiente MD Primary Care Provider Source Comments [facility],non-owned Affiliates and Associated Physician Practices is amultiple site organization consisting of ambulatory clinics and hospital sitesin [place], [place], [place] and [place]. This disclosure is being madepursuant to the Care Everywhere program and may not contain all information available regarding this patient. 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 Gender Identity Not on file Sexual Orientation Not on file Plan of Treatment Health Maintenance Due Date Last Done Comments COLOGUARD (AGES 45-75) - COL ON CA SCREENING 1973 COLON MONITORING 1973 COLONOSCOPY - COLON CA SCREENING 1973 CT COLONOGRAPHY - COLON CA SCREENING 1973 Colorectal Cancer Screening 1973 FIT - COLON CA SCREENING 1973 FLEX SIG - COLON CA SCREENING 1973 LIPID TESTING 1973 MAMMOGRAM 1973 PAP SMEAR 1973 HIV SCREENING 1988 HEPATITIS C SCREENING 06/11/1991 DTAP/TDAP/TD VACCINES (1 - Tdap) 1992 HEPATITIS B VACCINE (1 of 3 - 19+ 3-dose series) 1992 PNEUMOCOCCAL VACCINE 50+ (1 of 1 - PCV) 2023 ZOSTER VACCINE (1 of 2) 2023 COVID-19 VACCINE ( - 2023-2 5 season) 2024 DEPRESSION SCREENING 10/10/2024 INFLUENZA VACCINE (Season Ended) 2025 HIB VACCINE Aged Out No longer eligi ble based on patient's age to complete this topic HPV VACCINE Aged Out No longer eligi ble based on patient's age to complete this topic MENINGOCOCCAL (Group B) VACC INE SHARED DECISION-MAKING Aged Out No longer eligibl e based on patient's age to complete this topic MENINGOCOCCAL GROUPS A/C/Y/W VACCINE Aged Out No longer eligible b ased on patient's age to complete this topic Care Teams Signal Tester Relationship Specialty Start Date End Date Liyah Valiente MD [address] [place] [address] PCP - General 11/19/22
--- OUTSIDE RECORDS SUMMARY | 2025-03-11 16:55 | XMS_ITS | Clinical Summary ---
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 Gender Identity Not on file Sexual Orientation Not on file Plan of Treatment Health Maintenance Due Date Last Done Comments DTAP/TDAP/TD VACCINES (1 - Tdap) 1992 HEPATITIS B VACCINES (1 of 3 - 19+ 3-dose series) 1992 HPV/Cotest (21-29) 1994 HPV/Cotest (30-65) 2003 COLORECTAL SCREENING 2018 Colorectal Cancer Screening 2018 FIT-DNA Q 3 years 2018 FIT/FOBT Q 1 year 2018 Flex Sig/CT Colonography Q 5 years 2018 BREAST CANCER SCREENING 01/26/2022 01/27/20 21, 01/26/2021, 12/10/2019, Additional history exists CERVICAL CANCER SCREENING 12/09/2022 PAP SMEAR 12/09/2022 12/10/2019, 03/11/2019, 11/18/2016 ZOSTER VACCINE (1 of 2) 2023 INFLUENZA VACCINE (#1) 2024 Care Teams Choir Teacher Relationship Specialty Start Date End Date Lana Astorga MD PCP - General Family Practice 01/07/21
--- OUTSIDE RECORDS SUMMARY | 2025-03-11 16:55 | XMS_ITS | Encounter Summary ---
Author Organization [facility] Address [address] [place], [place] [address] [address] Care Team Providers Care Apparatus Repair Mechanic Name Role Phone Liyah Valiente MD Primary Care Provider Encounter Details Date Type Department Care Team (Late st Contact Info) Description 09/22/2022 Lab Requisition [facility] DermPath Lab [address] [place] [address] Dimitry Rocha MD [address] [place] [address] Social History Tobacco Use Types Packs/Day Years Used Date Smoking Tobacco: Never Assessed Comments Unknown Sex and Gender Information Value Date Recorded Sex Assigned at Not on file 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 Gender Identity Not on file Sexual Orientation Not on file documented as of this encounter Plan of Treatment Not on file documented as of this encounter Procedures Procedure Name Priority Date/Time Associated Diagnosis Comments DERMATOPATHOLOGY Routine 09/20/2022 12:0 0 AM BEHAVIORAL INSTRUCTOR documented in this encounter Results * DERMATOPATHOLOGY (09/20/2022 12:00 AM BEHAVIORAL INSTRUCTOR) Case Report Dermatopathology Report Case: [id number] Authorizing Provider: Dimitry Rocha MD Collected: 09/20/2022 12:00 AM Ordering Location: [facility] DermPath Lab Received: 09/22/2022 06:07 AM Pathologist: Kathleen Eubanks MD Specimen: Skin, left post shoulder 3:17 PM BEHAVIORAL INSTRUCTOR DERMATOPATHOLOGY LABORATORY Final Diagnosis Specimen A. SKIN, left post shoulder: COMPOUND MELANOCYTIC NEVUS, IRRITATED (D22.62) (see microscopic description) 2 3:17 PM [facility] DERMATOPATHOLOGY LABORATORY at 1517 BEHAVIORAL INSTRUCTOR Clinical History Neoplasm vs. Benign nevi 2 3:17 PM [facility] DERMATOPATHOLOGY LABORATORY Gross Description Specimen A: Received is one formalin filled container labeled with the patient's name and designated left post shoulder. The specimen consists of a shave biopsy measuring 4x4x1 mm. Jar 0. 2 3:17 PM [facility] DERMATOPATHOLOGY LABORATORY Microscopic Description Specimen A. SKIN, left post shoulder: There is melanin pigment in the stratum corneum. There are nests of melanocytes at the dermal-epidermal junction and within the dermis. Focal balloon cell features are noted. Lesional cells are highlighted by MART-1/MelanA. HMB-45 is positive within the intraepidermal component and shows weak patchy staining in the superficial aspect of the dermal component. P16 is intact in lesional cells. Additional deeper sections were obtained and reviewed. This case was also reviewed by Dr. Anusha Nuñez who agrees. 2 3:17 PM [facility] DERMATOPATHOLOGY LABORATORY Disclaimer An external and internal positive and negative controls are appropriate for the histochemical, immunohistochemical and immunofluorescence stain(s) in this case (if any), except where stated explicitly. The performance characteristics of the stain(s) cited in this report were developed and its performance characteristic determined by the Dermatopathology Laboratory at [facility], directed by Dr. Justin Trejo. These tests need not be, and therefore are not, approved by the [place] Food and Drug Administration. The tests are used for clinical purposes. Billing Codes Specimen Charges Stain Charges 52202 1 [id number] 1 1 1 2 3:17 PM [facility] DERMATOPATHOLOGY LABORATORY Embedded Images 2 3:17 PM [facility] DERMATOPATHOLOGY LABORATORY Pathology/Cytolog y TISSUE SPECIMEN FROM SKIN / Unknown 09/20/2022 09/22/2022 6:07 AM [facility] us Dimitry Rocha MD LAB - PATHOLOGY/CYTOLOGY ORDERAB LES Final Result DERMATOPATHOLOGY LABORATORY [facility] - Department of Dermatology [address] [phone] documented in this encounter Visit Diagnoses Not on filedocumented in this encounter Care Teams Apparatus Repair Mechanic Relationship Specialty Start Date End Date Liyah Valiente MD [address] [place] [address] PCP - General 11/19/22 documented as of this encounter
--- OUTSIDE RECORDS SUMMARY | 2025-03-11 16:55 | XMS_ITS | Patient Health Record ---
Author Organization [facility] Address [address] [place], [place] [id number] Care Team Providers Care Threat Monitoring Analyst Name Role Phone OVIDIO BERUMEN Unavailable [phone] Lencho Morrisseyan Unavailable Unavailable Allergies No Known Allergies Reason For Referral No Information Medications Medication SIG (Take, Route, Frequency, Duration) Notes Start Date End Date Status ciclopirox 80 MG/ML Topical Solution ciclopirox 80 MG/ML Topical SolutionOriginal Medicationciclopirox 80 MG/ML Topical Solution *Reorder from [employer] for eRx and Interaction Alerts* 7 Active Medrol Dosepak ORAL Medrol DosepakOr iginal MedicationMedrol Dosepak *Reorder from [employer] for eRx and Interaction Alerts* 9 Active Ciclopirox 8 % 1 application Externally Once a day to toenails. for 30 days Remove medication weekly with rubbing alcohol. one bottle, 6.6mL or similar 5 025 Active terbinafine 250 MG Oral Tablet ORAL terbinafine 250 MG Oral TabletOriginal Medicationterbinafine 250 MG Oral Tablet *Reorder from [employer] for eRx and Interaction Alerts* 9 Active methylPREDNISolone 4 MG as directed Orally one pack 4 Active Immunizations Vaccine Route Administration Date Status Comme nts Influenza, seasonal, injecta ble, preservative free, 3 yrs and above Unknown 08/03/2023 Administered Vital Signs Height-cm 167.64 cm 01/14/2025 Weight-kg 102.06 kg 01/14/2025 Height 66.00 in 01/14/2025 Weight 225 lbs 01/14/2025 BMI 36.31 kg/m2 01/14/2025 Procedures Procedure Date Ordered Date Performed Result Body Sit e PHYSICAL THERAPY 02/21/2025 N/A Encounters Encounter Location Date Provider Diagnosis [facility] [place] [address] [place] [id number] 12/24/2024 OVIDIO SNOOK Pain in left ankle and joints of left foot M25.572 ; Posterior tibial tendinitis, left leg M76.822 and Left foot pain M79.672 [facility] [address] [place] [id number] 01/14/2025 OVIDIO SNOOK Pain in left ankle and joints of left foot M25.572 ; Posterior tibial tendinitis, left leg M76.822 ; Left foot pain M79.672 and Tinea unguium B35.1 [facility] [address] [place] [id number] 06/25/2024 OVIDIO SNOOK Posterior tibial tendinitis, left leg M76.822 and Left foot pain M79.672 [facility] [place] [address] [place] [address] [id number] 07/09/2024 OVIDIO SNOOK Posterior tibial tendinitis, left leg M76.822 ; Primary osteoarthritis, right ankle and foot M19.071 ; Primary osteoarthritis, left ankle and foot M19.072 ; Left foot pain M79.672 and Pain in right foot M79.671 [facility] [place] [address] [place] [address] [id number] 08/06/2024 OVIDIO SNOOK Posterior tibial tendinitis, left leg M76.822 ; Primary osteoarthritis, right ankle and foot M19.071 ; Primary osteoarthritis, left ankle and foot M19.072 ; Left foot pain M79.672 and Pain in right foot M79.671 Assessments Encounter Date Diagnosis (ICD Code) Assessment Notes Treatment Notes Treatment Clinical Notes Section Notes 06/25/2024 Posterior tibial tendinitis, left leg (ICD-10 - M76.822) Posterior Tibialis Tendon Dysfunction: I discussed anti-inflammatory treatment options and various means of immobilization with the patient. I educated the patient on icing and stretching, supportive shoegear, and the use of orthotic devices and bracing. Continue orthotics 06/25/2024 Left foot pain (ICD-10 - M79.672) 07/09/2024 Primary osteoarthritis , right ankle and foot (ICD-10 - M19.071) 07/09/2024 Posterior tibial tendinitis, left leg (ICD-10 - M76.822) Posterior Tibialis Tendon Dysfunction: I discussed anti-inflammatory treatment options and various means of immobilization with the patient. I educated the patient on icing and stretching, supportive shoegear, and the use of orthotic devices and bracing. Continue orthotics. Orthotic Scan: The patient was scanned for functional orthotic devices. This was done in the subtalar joint neutral position in a non-weightbearing fashion. The patient will follow-up in 3-4 weeks time to be dispensed and fitted with the devices. 08/06/2024 Primary osteoarthritis , right ankle and foot (ICD-10 - M19.071) 08/06/2024 Posterior tibial tendinitis, left leg (ICD-10 - M76.822) Posterior Tibialis Tendon Dysfunction: I discussed anti-inflammatory treatment options and various means of immobilization with the patient. I educated the patient on icing and stretching, supportive shoegear, and the use of orthotic devices and bracing. Orthotic Dispense: The orthotic devices were dispensed and fitted. It was noted that the orthotic conformed well to the patient's foot in the subtalar joint neutral position. The patient was educated on the device's use, as well as the gradual break-in period for the device. 12/24/2024 Pain in left ankle and joints of left foot (ICD-10 - M25.572) Sinus Tarsi Syndrome: I discussed anti-inflammatory treatment options and various means of immobilization with the patient. I educated the patient on icing and stretching, supportive shoegear, and the use of orthotic devices and bracing. Kenalog Injection: Following skin prep, a total of 3 ccs of a 1-1-1 mix of 0.5% marcaine plain, 1% lidocaine plain, and Kenalog was injected to the left sinus tarsi 12/24/2024 Posterior tibial tendinitis, left leg (ICD-10 - M76.822) Posterior Tibialis Tendon Dysfunction: I discussed anti-inflammatory treatment options and various means of immobilization with the patient. I educated the patient on icing and stretching, supportive shoegear, and the use of orthotic devices and bracing. Orthotic Continue: Advised patient to continue to wear orthotic devices. 01/14/2025 Pain in left ankle and joints [...] Left foot pain (ICD-10 - M79.672) b 12/24/2024 Left foot pain (ICD-10 - M79.672) 08/06/2024 Primary osteoarthritis , left ankle and foot (ICD-10 - M19.072) 07/09/2024 Primary osteoarthritis , left ankle and foot (ICD-10 - M19.072) 01/14/2025 Tinea unguium (ICD-10 - B35.1) FUNGAL TOENAILS: Discussed various treatment options for fungal toenails including debridement, topical antifungals, oral antifungals, toenail avulsion, or toenail matrixectomy. b 07/09/2024 Left foot pain (ICD-10 - M79.672) 08/06/2024 Left foot pain (ICD-10 - M79.672) 08/06/2024 Pain in right foot (ICD-10 - M79.671) 07/09/2024 Pain in right foot (ICD-10 - M79.671) Plan Of Treatment Pending Test Test Name Order Date Liver Function Test (LFT) 08/29/2023 Liver Function Test (LFT) 09/26/2023 PHYSICAL THERAPY 02/21/2025 Insurance Providers Payer Name Payer Address Payer Phone Subscriber Number Group Number Insured Name Patient Relationship to Insured Coverage Start Date Coverage End Date [facility] ([facility]) ATTN CLAIMS [address] [place] [address] [id number] MARY DELANEY Self - patient is the insured
--- OUTSIDE RECORDS SUMMARY | 2025-03-11 16:55 | XMS_ITS | Encounter Summary ---
Author Organization [facility] Address 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 Report feedback to Dr. Morrissey. <<<<<<<< TRIAGE NOTE >>>>>>>> Triage Note: Interface Analyst Estrellita Dolan added this note on Dec 22 2015 9:59AM: I verified that the patients provider was in network and that a mammogram can be ordered to the [facility]. Patient stated that they would call the office and get that scheduled. <<<<<<<< TRIAGE/OUTCOME >>>>>>>> Guideline Title: [facility] Recommended Disposition: Current Physician Network Status Original Inclination: Self Management Intended Action: Self Management Physician Contacted: No Patient's current physician is in the [facility] network ? YES documented in this encounter Plan of Treatment Not on file documented as of this encounter Visit Diagnoses Not on filedocumented in this encounter Care Teams Chief Telephone Operator Relationship Specialty Start Date End Date Lana Astorga MD PCP - General Family Practice 01/07/21 documented as of this encounter
--- OUTSIDE RECORDS SUMMARY | 2025-03-11 16:55 | XMS_ITS ---
Author Organization [facility] Address [address] [place], [place] [id number] Care Team Providers Care Director Of Neighborhood Service [facility] Name Role Phone OVIDIO BERUMEN Unavailable [phone] Bryan Morrissey Unavailable Unavailable REASON FOR VISIT The patient has a history of foot pain and finds custom orthotics help. She is having some pain below her ankle that will not go away Medications Medication SIG (Take, Route, Frequency, Duration) Notes Start Date End Date Status Medrol Dosepak ORAL Medrol DosepakOr iginal MedicationMedrol Dosepak *Reorder from [employer] for eRx and Interaction Alerts* 9 Active ciclopirox 80 MG/ML Topical Solution ciclopirox 80 MG/ML Topical SolutionOriginal Medicationciclopirox 80 MG/ML Topical Solution *Reorder from [employer] for eRx and Interaction Alerts* 7 Active methylPREDNISolone 4 MG as directed Orally one pack 4 Active terbinafine 250 MG Oral Tablet ORAL terbinafine 250 MG Oral TabletOriginal Medicationterbinafine 250 MG Oral Tablet *Reorder from [employer] for eRx and Interaction Alerts* 9 Active Encounters Encounter Location Date Provider Diagnosis [facility] [address] [place], [place] [phone] 12/24/2024 OVIDIO SNOOK Pain in left ankle and joints of left foot M25.572 ; Posterior tibial tendinitis, left leg M76.822 and Left foot pain M79.672 Assessments Encounter Date Diagnosis (ICD Code) Assessment Notes Treatment Notes Treatment Clinical Notes Section Notes 12/24/2024 Pain in left ankle and joints [...] patient to continue to wear orthotic devices. 12/24/2024 Left foot pain (ICD-10 - M79.672) Plan Of Treatment Treatment Notes Assessment Notes Pain in left [...] was injected to the left sinus tarsi Posterior tibial tendinitis, left leg Posterior Tibialis Tendon Dysfunction: I discussed anti-inflammatory treatment options and various means of immobilization with the patient. I educated the patient on icing and stretching, supportive shoegear, and the use of orthotic devices and bracing. Orthotic Continue: Advised patient to continue to wear orthotic devices. Next Appt Details Follow Up: 2 Weeks, Reason: See how 1st sinus tarsi injection helped Progress Notes * MARY DELANEYOB:03/1975 (49 yo F)Acc No.[id number]:12/24/2024 Patient: Ronna DICKSONSCOTTIEMARY ELIZABETH Provider: Andria Berumen DPM :1975 A ge:49 Y S ex:Female Date:12/24/2024 Address:[address] [facility] Subjective: * Chief Complaints: * 1 . The patient has a history of foot pain and finds custom orthotics help. She is having some pain below her ankle that will not go away. * HPI: H PI: New Complaint E stablished patient presents with a new complaint., Patient complains of an issue to left ankle area pain. She states that the spot of the pain depends on the day but its mainly in the ankle. She is wanting to get an injection. , MA: phil. * ROS: G eneral / Constitutional: Patient denies c hills, fever, weakness, night sweats. M usculoskeletal: Patient denies c hildhood foot problems, weakness. P atient complains of h eel pain, arch pain, [...] Medicationciclopirox 80 MG/ML Topical Solution *Reorder from [facility] for eRx and Interaction Alerts*, Taking Medrol Dosepak ORAL , Notes to Pharmacist: Medrol DosepakOriginal MedicationMedrol Dosepak *Reorder from [facility] for eRx and Interaction Alerts*, Taking terbinafine 250 MG Oral Tablet ORAL , Notes to Pharmacist: terbinafine 250 MG Oral TabletOriginal Medicationterbinafine 250 MG Oral Tablet *Reorder from [facility] for eRx and Interaction Alerts*, Taking methylPREDNISolone 4 MG Tablet Therapy Pack as directed Orally , Notes to Pharmacist: one pack, Medication List reviewed and reconciled with the patient Objective: * Vitals: * Examination: C onstitutional: Constitutional T he patient is awake, alert, well developed, well groomed and well nourished. D ermatologic: Skin findings: S kin is warm, dry, supple with no breaks in the skin. V ascular: Dorsalis pedis pulse: 2 /4, [...] L eft foot pain - M79.672 ? Plan: * Treatment: 2. P osterior tibial tendinitis, left leg Notes: Posterior Tibialis Tendon Dysfunction: I discussed anti-inflammatory treatment options and various means of immobilization with the patient. I educated the patient on icing and stretching, supportive shoegear, and the use of orthotic devices and bracing. Orthotic Continue: Advised patient to continue to wear orthotic devices. * Procedure Codes: 2 0605 DRAIN/INJECT, JOINT/BURSA, Modifiers: LT * Follow Up: 2 Weeks (Reason: See how 1st sinus tarsi injection helped) * Billing Information: * Visit Code: 12157 Office Visit, Est Pt., Level 3. Modifiers: 25 * Procedure Codes: 61351 DRAIN/INJECT, JOINT/BURSA. Modifiers: LT * Electronic signature of OVIDIO BERUMEN DPM on 03/11/2025 at 04:55 PM CDT Sign off status: Pending * Provider: Andria Berumen DPM Date: 0 12/24/2024 Generated for Printi ng/Faxing/eTransmitting on: 0 03/11/2025 04:55 PM CDT History and Physical Notes * HPI (History of Present Illness) Category Sub-Category Detail Notes Category Not es HPI New Complaint Established kourtney ent presents with a new complaint., Patient complains of an issue to left ankle area pain. She states that the spot of the pain depends on the day but its mainly in the ankle. She is wanting to get an injection. , MA: [facility] Examination Category Sub-Category Detail Notes Category Not es Dermatologic Skin findings: Skin is warm, dr y, supple with no breaks in the skin Neurologic Gross sensation Gross sensation is intact [...]
--- OUTSIDE RECORDS SUMMARY | 2025-03-11 16:57 | XMS_ITS | Continuity of Care Document ---
Author Organization [facility] Address [address] [place] [address] Phone Care Team Providers Care Torsion Spring Coiling Machine Setter Name Role Phone Unavailable Unavailable Unavailable Advance Directives Directive Yes / No Effective Date File Name No Information Encounters Encounter Description Practice Location Reason(s) For Visit Diagnoses Date Provider Providers Copied on Encounter [facility], [address], [place], [place], [id number], [place] tel:[phone] WHIT ALANIS No Information Apr-0 5-200 7 No Information Family History Family Member Type Diagnosis Age At Onset No Information Payers Payer name Insurance type Covered green party ID Authoriza tion(s) No Information Social History Type Description Quantity Date Captured Comments Sex Female Smoking Status No Information Chief Complaint And Reason For Visit No Information History Of Present Illness Encounter Date Complaint History Of Prese nt Illness No Information Instructions Date Instruction Additional Infor mation No Information Assessments Type Assessment Date No Information
[2025-03-11 17:18] LABS: Add Urine Microscopic? NO; Appearance Urine Clear (Clear); Bilirubin Urine Negative (Negative); Blood Urine Negative (Negative); Color Urine Yellow (Yellow); Glucose Urine UA Negative (Negative); Ketones Urine Negative (Negative); Leukocyte Esterase Ur Negative LEU/UL (Negative); Nitrate Urine Negative (Negative); Protein Urine Negative (Negative); Specific Grav Ur 1.021 (1.001-1.035); Urobilinogen Urine 0.2 mg/dL (<2.0); pH Urine 5.5 (5.0-9.0)
== END 2025-03-11 16:54 | disposition home or self-care (01) ==
LOC: ANHLAB 16:54
PROVIDERS: PCP Nurse Practitioner Family; Visit Provider Family Medicine
DX: R30.0 Dysuria (principal)
CPT/HCPCS: 81003

== ENCOUNTER 2025-03-26 09:03 | Outpatient (CLI) | payer BC, SELFPAY ==
--- OUTSIDE RECORDS SUMMARY | 2025-03-26 09:38 | XMS_ITS | Clinical Summary ---
Author Organization [facility] Address [facility] [place] [address] Care Team Providers Care Mannequin Decorator Name Role Phone Liyah Valiente MD Primary Care Provider Source Comments [facility],non-owned Affiliates and Associated Physician Practices is amultiple site organization consisting of ambulatory clinics and hospital sitesin [place], [place], [place] and [place]. This disclosure is being madepursuant to the Care Everywhere program and may not contain all information available regarding this patient. 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
--- OUTSIDE RECORDS SUMMARY | 2025-03-26 09:38 | XMS_ITS | Encounter Summary ---
Author Organization [facility] Address [address] [place], [place] [address] [address] Care Team Providers Care Detailer Pharmaceuticals Name Role Phone Liyah Valiente MD Primary Care Provider Encounter Details Date Type Department Care Team (Late st Contact Info) Description 09/22/2022 Lab Requisition [facility] [address] [facility] [place] [address] Dimitry Rocha MD [address] [place] [address] Social History Tobacco Use Types Packs/Day Years Used Date Smoking Tobacco: Never Assessed Comments Unknown Sex and Gender Information Value Date Recorded Sex Assigned at Not on file 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 Gender Identity Not on file Sexual Orientation Not on file documented as of this encounter Plan of Treatment Not on file documented as of this encounter Procedures Procedure Name Priority Date/Time Associated Diagnosis Comments DERMATOPATHOLOGY Routine 09/20/2022 12:0 0 AM DRYERMAN/WOMAN documented in this encounter Results * DERMATOPATHOLOGY (09/20/2022 12:00 AM DRYERMAN/WOMAN) Case Report Dermatopathology Report Case: [id number] Authorizing Provider: Dimitry Rocha MD Collected: 09/20/2022 12:00 AM Ordering Location: [facility] Received: 09/22/2022 06:07 AM Pathologist: Kathleen Eubanks MD Specimen: Skin, left post shoulder 3:17 PM DRYERMAN/WOMAN DERMATOPATHOLOGY LABORATORY Final Diagnosis Specimen A. SKIN, left post shoulder: COMPOUND MELANOCYTIC NEVUS, IRRITATED (D22.62) (see microscopic description) 2 3:17 PM [facility]OR[facility] at [address] DRYERMAN/WOMAN Clinical History Neoplasm vs. Benign nevi 2 3:17 PM [facility] Gross Description Specimen A: Received is one formalin filled container labeled with the patient's name and designated left post shoulder. The specimen consists of a shave biopsy measuring 4x4x1 mm. Jar 0. 2 3:17 PM [facility] Microscopic Description Specimen A. [...] Anusha Nuñez who agrees. 2 3:17 PM [facility] Disclaimer An external and internal positive and negative controls are appropriate for the histochemical, immunohistochemical and immunofluorescence stain(s) in this case (if any), except where stated explicitly. The performance characteristics of the stain(s) cited in this report were developed and its performance characteristic determined by the Dermatopathology Laboratory at [facility], directed by Dr. Justin Trejo. These tests need not be, and therefore are not, approved by the [place] Food and Drug Administration. The tests are used for clinical purposes. Billing Codes Specimen Charges Stain Charges 53831 1 35698 34689 65821 1 1 1 2 3:17 PM [facility] Embedded Images 2 3:17 PM [facility] Pathology/Cytolog y TISSUE SPECIMEN FROM SKIN / Unknown 09/20/2022 09/22/2022 6:07 AM [facility] us Dimitry Rocha MD LAB - PATHOLOGY/CYTOLOGY ORDERAB LES Final Result DERMATOPATHOLOGY LABORATORY [facility] - Department of Dermatology [address] [phone] documented in this encounter Visit Diagnoses Not on filedocumented in this encounter Care Teams Detailer Pharmaceuticals Relationship Specialty Start Date End Date Liyah Valiente MD [address] [place] [address] PCP - General 11/19/22 documented as of this encounter
--- OUTSIDE RECORDS SUMMARY | 2025-03-26 09:38 | XMS_ITS | Clinical Summary ---
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
--- OUTSIDE RECORDS SUMMARY | 2025-03-26 09:38 | XMS_ITS | Continuity of Care Document ---
Author Organization [facility] Address [address] [place] [address] Phone Care Team Providers Care Fitting Supervisor Name Role Phone Unavailable Unavailable Unavailable Advance Directives Directive Yes / No Effective Date File Name No Information Encounters Encounter Description Practice Location Reason(s) For Visit Diagnoses Date Provider Providers Copied on Encounter [facility], [address], [place], [place], [id number], [place] tel:[phone] WHIT ALANIS No Information Apr-0 5-200 7 [...]
--- OUTSIDE RECORDS SUMMARY | 2025-03-26 09:38 | XMS_ITS | Encounter Summary ---
Author Organization [facility] Address 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 Report feedback to Dr. Morrissey. <<<<<<<< TRIAGE NOTE >>>>>>>> Triage Note: Set Up Mechanic Heading Machines Estrellita Dolan added this note on Dec 22 2015 9:59AM: I verified that the patients provider was in network and that a mammogram can be ordered to the [facility]. Patient stated that they would call the office and get that scheduled. <<<<<<<< TRIAGE/OUTCOME >>>>>>>> Guideline Title: [facility] Recommended Disposition: Current Physician Network Status Original Inclination: Self Management Intended Action: Self Management Physician Contacted: No Patient's current physician is in the [facility] network ? YES documented in this encounter Plan of Treatment Not on file documented as of this encounter Visit Diagnoses Not on filedocumented in this encounter Care Teams Data Base Design Analyst Relationship Specialty Start Date End Date Lana Astorga MD PCP - General Family Practice 01/07/21 documented as of this encounter
[2025-03-26 19:15] LABS: Basophils Absolute Auto 0.1 K/mm3 (0.0-0.1); Basophils Percent Auto 0.9 % (0.2-1.2); Eosinophils Absolute Auto 0.3 K/mm3 (0-0.3); Eosinophils Percent Auto 3.2 % (0-4.4); Hematocrit 43.4 % (37.0-47.0); Hemoglobin 13.8 g/dL (12.0-15.0); Immature Granulocyte Absolute 0.02 K/mm3 (0.00-0.031); Immature Granulocyte Percent A 0.3 % (0-0.5); Lymphocytes Absolute Auto 1.37 K/mm3 (0.9-3.2); Lymphocytes Percent Auto 17.6 % (18.3-44.2); Mean Corpuscular HGB Conc 31.8 g/dl (32-36); Mean Corpuscular Hemoglobin 28.5 pg (26-34); Mean Corpuscular Volume 89.5 fl (80-100); Mean Platelet Volume 11.2 fl (7.4-10.4); Monocytes Absolute Auto 0.5 K/mm3 (0.1-0.6); Monocytes Percent Auto 6.2 % (2.6-8.5); Neutrophils Absolute Auto 5.6 K/mm3 (1.3-6.7); Neutrophils Percent Auto 71.8 % (45.5-73.1); Platelet Count Result 236 k/mm3 (150-375); Red Blood Count 4.85 M/mm3 (4.2-5.4); Red Cell Distribution Width 14.2 % (11.5-14.5); White Blood Count 7.8 K/mm3 (4.5-10.0)
[2025-03-26 19:47] LABS: Erythrocyte Sedimentation Rate 8 mm/hr (0-20)
[2025-03-26 20:16] LABS: Alanine Aminotransferase 22 U/L (6-35); Albumin Level 4.5 g/dL (3.5-5.1); Alkaline Phosphatase 82 U/L (38-126); Anion Gap 8 mmol/L (4-12); Aspartate Amino Transferase 26 U/L (14-36); Bilirubin,Total 0.6 mg/dL (0.2-1.3); Blood Urea Nitrogen 16 mg/dL (7-17); CRP 1.4 mg/dL (<1.0); Calcium 9.6 mg/dL (8.4-10.2); Carbon Dioxide 27 mmol/L (22-30); Chloride 105 mmol/L (98-107); Estimated Glomerular Filt Rate > 60; Glucose 107 mg/dL (65-110); Phosphorus 3.3 mg/dL (2.5-4.5); Potassium 4.1 mmol/L (3.4-5.0); Rheumatoid Factor < 12.0 IU/ML (<12); Sodium 140 mmol/L (137-145); Total Protein 7.8 g/dL (6.3-8.2); Uric Acid 6.3 mg/dL (2.5-7.5)
[2025-03-26 20:55] LABS: Hepatitis B Surface Antigen Negative (Negative)
[2025-03-26 21:02] LABS: HAV RESULT Negative (Negative); Hepatitis B Core IgM Result Negative (Negative)
[2025-03-26 21:13] LABS: Hepatitis B Surface Anti Res Negative; Hepatitis C Virus Antibody Negative (Negative)
[2025-03-27 16:43] LABS: Cyclic Citrullinated Peptide <16 UNITS
[2025-03-28 12:27] LABS: Anti Nuclear Antibody Pattern Nuclear, Speckled; Anti Nuclear Antibody Titer 1:40 titer
[2025-03-29 09:15] LABS: NIL 0.01 IU/mL; Quantiferon TB Plus, 1T NEGATIVE (NEGATIVE); TB2-NIL 0.01 IU/mL
== END 2025-03-26 09:04 | disposition home or self-care (01) ==
LOC: ANHGOSHLAB 09:06
PROVIDERS: PCP Nurse Practitioner Family; Visit Provider Internal Medicine
DX: M13.80 Other specified arthritis, unspecified site (principal); Z79.899 Other long term (current) drug therapy
CPT/HCPCS: 36415; 80053; 80074; 84100; 84443; 84550; 85025; 85652; 86038; 86039; 86140; 86200; 86430; 86480; 86706

== ENCOUNTER 2025-03-26 09:22 | Outpatient (CLI) | payer BC, SELFPAY ==
--- NOTE | ~2025-03-26 | XR_ITS ---
Lumbosacral Spine: AP, oblique, and lateral views Clinical History: Pain Findings: The normal lordotic curve is maintained. No fracture or subluxation. There is moderate dege nerative disc narrowing at L4-L5. There is moderate facet arthropathy at L4-L5 and L5-S1.. The sacro iliac joints are normally outlined. Impression: Moderate degenerative spondylosis at the lower lumbar spine, as detailed above. Reviewed, dictated and finalized at [facility]. Impression: Moderate degenerative spondylosis at the lower lumbar spine, as detailed above.
--- NOTE | ~2025-03-26 | XR_ITS ---
Left foot Technique: AP and lateral views were obtained. Clinical History: Arthritis Findings: No acute fracture or dislocation is seen. Osseous alignment is anatomic. Joint spaces are p reserved without erosive or degenerative change. Soft tissues are unremarkable. Impression: Unremarkable left foot radiographs. Reviewed, dictated and finalized at [facility]. Impression: Unremarkable left foot radiographs.
--- NOTE | ~2025-03-26 | XR_ITS ---
Right foot Technique: AP and lateral views were obtained. Clinical History: Arthritis Findings: No acute fracture or dislocation is seen. Osseous alignment is anatomic. Joint spaces are p reserved without erosive or degenerative change. Soft tissues are unremarkable. Impression: Unremarkable right foot radiographs. Reviewed, dictated and finalized at [facility]. Impression: Unremarkable right foot radiographs.
--- NOTE | ~2025-03-26 | XR_ITS ---
AP and oblique views of the SI joints CLINICAL HISTORY: Arthritis FINDINGS: There is minimal degenerative change of both SI joints. Hip joints are intact. No erosive c hange or sclerosis. Soft tissues are unremarkable. No fracture or dislocation. IMPRESSION: Minimal degenerative change of both SI joints. Reviewed, dictated and finalized at location .
--- NOTE | ~2025-03-26 | XR_ITS ---
Left Hand Technique: PA and lateral views were obtained. Clinical History: Arthritis Findings: No acute fracture or dislocation is seen. Osseous alignment is anatomic. Joint spaces are p reserved. Soft tissues are unremarkable. Impression: Unremarkable left hand. Reviewed, dictated and finalized at location [facility]. Impression: Unremarkable left hand.
--- NOTE | ~2025-03-26 | XR_ITS ---
Right Hand Technique: PA and lateral views were obtained. Clinical History: Arthritis Findings: No acute fracture or dislocation is seen. Osseous alignment is anatomic. Joint spaces are p reserved. Soft tissues are unremarkable. Impression: Unremarkable right hand. Reviewed, dictated and finalized at location [facility]. Impression: Unremarkable right hand.
== END 2025-03-26 09:23 | disposition home or self-care (01) ==
PROVIDERS: PCP Internal Medicine; Visit Provider Internal Medicine
DX: M13.80 Other specified arthritis, unspecified site (principal); Z79.899 Other long term (current) drug therapy; M47.896 Other spondylosis, lumbar region
CPT/HCPCS: 72110; 72202; 73120; 73620

== ENCOUNTER 2025-05-30 15:05 | Outpatient (CLI) | payer BC, SELFPAY ==
--- OUTSIDE RECORDS SUMMARY | 2025-05-30 15:11 | XMS_ITS | Clinical Summary ---
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
--- OUTSIDE RECORDS SUMMARY | 2025-05-30 15:11 | XMS_ITS | Encounter Summary ---
Author Organization [facility] Address [address] [place], [place] [address] [address] Care Team Providers Care Curtain Fitter Name Role Phone Liyah Valiente MD Primary Care Provider Encounter Details Date Type Department Care Team (Late st Contact Info) Description 09/22/2022 Lab Requisition [facility] [address] [facility] [place] [address] Dimitry Rocha MD [address] [place] [address] Social History Tobacco Use Types Packs/Day Years Used Date Smoking Tobacco: Never Assessed Comments Unknown Sex and Gender Information Value Date Recorded Sex Assigned at Not on file Legal Sex Female 3:07 PM RETAIL LEASING AGENT Gender Identity Not on file Sexual Orientation Not on file documented as of this encounter Plan of Treatment Not on file documented as of this encounter Procedures Procedure Name Priority Date/Time Associated Diagnosis Comments DERMATOPATHOLOGY Routine 09/20/2022 12:0 0 AM RETAIL LEASING AGENT documented in this encounter Results * DERMATOPATHOLOGY (09/20/2022 12:00 AM RETAIL LEASING AGENT) Case Report Dermatopathology Report Case: [id number] Authorizing Provider: Dimitry Rocha MD Collected: 09/20/2022 12:00 AM Ordering Location: [facility] Received: 09/22/2022 06:07 AM Pathologist: Kathleen Eubanks MD Specimen: Skin, left post shoulder 3:17 PM RETAIL LEASING AGENT DERMATOPATHOLOGY LABORATORY Final Diagnosis Specimen A. SKIN, left post shoulder: COMPOUND MELANOCYTIC NEVUS, IRRITATED (D22.62) (see microscopic description) 2 3:17 PM [facility] DERMATOPATHOLOGY [facility]ORATORY at [address] RETAIL LEASING AGENT Clinical History Neoplasm vs. Benign nevi 2 3:17 PM [facility]ERMATOPATHOLOGY [facility]ORATORY Gross Description Specimen A: Received is one formalin filled container labeled with the patient's name and designated left post shoulder. The specimen consists of a shave biopsy measuring 4x4x1 mm. Jar 0. 2 3:17 PM [facility] DERMATOPATHOLOGY LABORATORY Microscopic Description Specimen A. SKIN, [...] Anusha Nuñez who agrees. 2 3:17 PM [facility] DERMATOPATHOLOGY LABORATORY Disclaimer An external and internal positive and negative controls are appropriate for the histochemical, immunohistochemical and immunofluorescence stain(s) in this case (if any), except where stated explicitly. The performance characteristics of the stain(s) cited in this report were developed and its performance characteristic determined by the Dermatopathology Laboratory at [facility], directed by Dr. Justin Trejo. These tests need not be, and therefore are not, approved by the [place] Food and Drug Administration. The tests are used for clinical purposes. Billing Codes Specimen Charges Stain Charges 48658 1 66748 33142 57732 1 1 1 2 3:17 PM [facility] DERMATOPATHOLOGY LABORATORY Embedded Images 2 3:17 PM [facility] DERMATOPATHOLOGY LABORATORY Pathology/Cytolog y TISSUE SPECIMEN FROM SKIN / Unknown 09/20/2022 09/22/2022 6:07 AM [facility] us Dimitry Rocha MD LAB - PATHOLOGY/CYTOLOGY ORDERAB LES Final Result DERMATOPATHOLOGY LABORATORY [facility] - Department of Dermatology [address] [phone] documented in this encounter Visit Diagnoses Not on filedocumented in this encounter Care Teams Curtain Fitter Relationship Specialty Start Date End Date Liyah Valiente MD [address] [place] [address] PCP - General 11/19/22 documented as of this encounter
--- OUTSIDE RECORDS SUMMARY | 2025-05-30 15:12 | XMS_ITS | Clinical Summary ---
Author Organization [facility] Address [facility] [facility] [address] [place] [address] Care Team Providers Care Senior C Software Developer Name Role Phone Liyah Valiente MD Primary Care Provider Source Comments [facility],non-owned Affiliates and Associated Physician Practices is amultiple site organization consisting of ambulatory clinics and hospital sitesin [place] and [place]. This disclosure is being madepursuant to the Care Everywhere program and may not contain all information available regarding this patient. 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 Gender Identity Not on file Sexual Orientation [...] SCREENING 1973 LIPID TESTING 1973 MAMMOGRAM 1973 HIV SCREENING 1988 HEPATITIS C SCREENING 06/11/1991 DTAP/TDAP/TD VACCINES (1 - Tdap) 1992 HEPATITIS B VACCINE (1 of 3 - 19+ 3-dose series) 1992 PAP SMEAR 1994 PNEUMOCOCCAL VACCINE 50+ (1 of 1 - PCV) 2023 ZOSTER VACCINE (1 of 2) 2023 COVID-19 VACCINE ( - 2023-2 5 season) 2024 DEPRESSION SCREENING 10/10/2024 INFLUENZA VACCINE (#1) 2025 HIB VACCINE Aged Out No longer [...] age to complete this topic Care Teams Senior C Software Developer Relationship Specialty Start Date End Date Liyah Valiente MD [address] [place] [address] PCP - General 11/19/22
--- OUTSIDE RECORDS SUMMARY | 2025-05-30 15:12 | XMS_ITS | Patient Health Record ---
Author Organization [facility] Address [address] [place], [place] [address] Care Team Providers Care Magnetic Resonance Imaging Coordinator Name Role Phone OVIDIO BERUMEN Unavailable [phone] YuniBryan Unavailable Unavailable Allergies No Known Allergies Reason For Referral No Information Medications Medication SIG (Take, Route, Frequency, Duration) Notes Start Date End Date Status ciclopirox 80 MG/ML Topical Solution ciclopirox 80 MG/ML Topical SolutionOriginal Medicationciclopirox 80 MG/ML Topical Solution *Reorder from fypio for eRx and Interaction Alerts* 7 Active Medrol Dosepak ORAL Medrol DosepakOr iginal MedicationMedrol Dosepak *Reorder from fypio for eRx and Interaction Alerts* 9 Active Ciclopirox 8 % 1 application Externally Once a day to toenails.; Duration: 30 days Remove medication weekly with rubbing alcohol. one bottle, 6.6mL or similar 5 025 Active terbinafine 250 MG Oral Tablet ORAL terbinafine 250 MG Oral TabletOriginal Medicationterbinafine 250 MG Oral Tablet *Reorder from fypio for eRx and Interaction Alerts* 9 Active [...] Result Body Sit e PHYSICAL THERAPY 02/21/2025 03/15/2025 SEE PHYSICAL THERAP Y REPORT Encounters Encounter Location Date Provider Diagnosis [facility] [place] [address] [address] [place] [address] [id number] 06/25/2024 OVIDIO SNOOK Posterior tibial tendinitis, left leg M76.822 and Left foot pain M79.672 [facility] [place] [address] [address] [place] [address] [id number] 07/09/2024 OVIDIO SNOOK Posterior tibial tendinitis, left leg M76.822 ; Primary osteoarthritis, right ankle and foot M19.071 ; Primary osteoarthritis, left ankle and foot M19.072 ; Left foot pain M79.672 and Pain in right foot M79.671 [facility] [place] [facility] [address] [place] [address] [id number] 08/06/2024 OVIDIO SNOOK Posterior tibial tendinitis, left leg M76.822 ; Primary osteoarthritis, right ankle and foot M19.071 ; Primary osteoarthritis, left ankle and foot M19.072 ; Left foot pain M79.672 and Pain in right foot M79.671 [facility] [place] [address] [address] [place] [address] [id number] 12/24/2024 OVIDIO SNOOK Pain in left ankle and joints of left foot M25.572 ; Posterior tibial tendinitis, left leg M76.822 and Left foot pain M79.672 [facility] [place] [address] [address] [place] [address] [id number] 01/14/2025 OVIDIO SNOOK Pain in left ankle [...] (LFT) 08/29/2023 Liver Function Test (LFT) 09/26/2023 Insurance Providers Payer Name Payer Address Payer Phone Subscriber Number Group Number Insured Name Patient Relationship to Insured Coverage Start Date Coverage End Date [facility] ([facility]) ATTN CLAIMS [address] [place] [address] [id number] MARY DELANEY Self - patient is the insured
--- OUTSIDE RECORDS SUMMARY | 2025-05-30 15:12 | XMS_ITS | Encounter Summary ---
Author Organization [facility] Address 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 Report feedback to Dr. Morrissey. <<<<<<<< TRIAGE NOTE >>>>>>>> Triage Note: Land Classifier Estrellita Dolan added this note on Dec 22 2015 9:59AM: I verified that the patients provider was in network and that a mammogram can be ordered to the [facility]. Patient stated that they would call the office and get that scheduled. <<<<<<<< TRIAGE/OUTCOME >>>>>>>> Guideline Title: [employer] [facility] Recommended Disposition: Current Physician Network Status Original Inclination: Self Management Intended Action: Self Management Physician Contacted: No Patient's current physician is in the [facility] network ? YES documented in this encounter Plan of Treatment Not on file documented as of this encounter Visit Diagnoses Not on filedocumented in this encounter Care Teams Level Glass Forming Machine Operator Relationship Specialty Start Date End Date Lana Astorga MD PCP - General Family Practice 01/07/21 documented as of this encounter
== END 2025-05-30 15:06 | disposition home or self-care (01) ==
LOC: ANHGOSHLAB 15:09
PROVIDERS: PCP Family Medicine; Visit Provider Internal Medicine
DX: M45.A0 Non-radiographic axial spondyloarthritis of unspecified sites in spine (principal)
CPT/HCPCS: 86235

== ENCOUNTER 2025-06-05 15:30 | Outpatient (RCR) | payer BC, SELFPAY ==
--- NOTE | 2025-03-15 15:20 | OPREHPOC ---
Outpatient Therapy Plan of Care This is a Multidisciplinary Plan of Care that may contain components documented by all disciplines (PT, OT, and ST.) PT Problem 1 PT Problem #1 Knowledge Deficit PT Goal 1 Goal / Goal Update Patient to demonstrate independence with home exercise program for improved self-reliance of symptom management. Target Visit 8 PT Problem 2 PT Problem #2 Impaired Range of Motion PT Goal 1 Goal / Goal Update 1. Patient to demonstrate an increase in bilateral gastrocnemius length of 10 degrees of dorsiflexion to improve flexibility required for gait. PT Problem 3 PT Problem #3 Impaired Strength PT Goal 1 Goal / Goal Update 1. Patient will demonstrate improved strength of the bilateral hip abductors and extensors to 4+/5 on manual muscle testing in order to improve gait stability and stair negotiation. 2. Patient to demonstrate ability to perform single-leg heel raise without increase in pain to show an improvement in functional ankle strength. Target Visit 8 PT Problem 4 PT Problem #4 Impaired Balance PT Goal 1 Goal / Goal Update 1. patient will have improvement on the Single-Leg Stance balance test to >15 seconds for increased ankle stability. Target Visit 8
--- NOTE | 2025-03-15 15:20 | PTOPEVAL1 ---
Assessment and note entered by Erik Yepez PT Evaluation Information Assessment Status Evaluation Diagnosis MANGO foot pain ICD-10 Condition Codes (PT) Difficulty Walking R26.2 Other ICD-10 Condition Codes ( M79.672 M79.671 PT) Onset chronic Subjective Information Pt reports a history of Mango foot pain affecting her ability to walk down stairs and perform prolonged standing. 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 Pt currently wears orthotic and has received injection in the L foot and has noticed a Signiant decrease in symptoms Reported Pain Level Pain Score 1,0: Self Report Assessment PT Clinical Summary Patient presents to physical therapy with a primary issue of chronic Mango foot pain. Patient demonstrates decreased ankle and hip stability affecting her ability to perform activities of daily living and functional movements. Additionally pt. has ankle dorsiflexion limitation affecting gait mechanics. Patient will benefit from skilled physical therapy to address the above listed deficits and return to prior level of function. Home exercise program instructed and written handout provided, exercises tolerated well with no adverse effects to note post-session. Patient was educated on importance of adherence to home exercise program. Patient was also educated on anatomy, prognosis, home modalities, and plan of care Plan of Care Interventions Electrical Stimulation,Gait Training,Hot Pack/Cold Pack,Manual Therapy,Neuro Re-education,Patient/ Caregiver Education,Therapeutic Activities, Therapeutic Exercise,Self-Care/Home Management, Other PT Services Indicated Yes These treatments will address the objective and functional deficits as defined above. The patient will be advanced safely and appropriately in order for the patient to progress towards his/her prior level of function. Additional exercises will be introduced and as well as a comprehensive home exercise program upon discharge, if needed, ?to ensure carryover of functional gains achieved in the clinic. This treatment plan has been reviewed and agreement upon by the patient.
--- NOTE | 2025-03-21 14:44 | PCPTNOTE ---
Patient canceled this date; no specified reason given
--- NOTE | 2025-03-28 16:41 | OPREHPOC ---
Outpatient Therapy Plan of Care This is a Multidisciplinary Plan of Care that may contain components documented by all disciplines (PT, OT, and ST.) PT Problem 1 PT Problem #1 Knowledge Deficit PT Goal 1 Goal / Goal Update Patient to demonstrate independence with home exercise program for improved self-reliance of symptom management. Target Visit 8 PT Problem 2 PT Problem #2 Impaired Range of Motion PT Goal 1 Goal / Goal Update 1. Patient to demonstrate an increase in bilateral gastrocnemius length of 10 degrees of dorsiflexion to improve flexibility required for gait. 2. Pt to demonstrate an increase of L hip ER/IR AROM to match R side. PT Problem 3 PT Problem #3 Impaired Strength PT Goal 1 Goal / Goal Update 1. Patient will demonstrate improved strength of the bilateral hip abductors and extensors to 4+/5 on manual muscle testing in order to improve gait stability and stair negotiation. 2. Patient to demonstrate ability to perform single-leg heel raise without increase in pain to show an improvement in functional ankle strength. 3. Pt will demonstrate 4/5 lower abdominal strength without pain reproduction to demonstrate improve core strenght to support lumbar spine. Target Visit 8 PT Problem 4 PT Problem #4 Impaired Balance PT Goal 1 Goal / Goal Update 1. patient will have improvement on the Single-Leg Stance balance test to >15 seconds for increased ankle stability. Target Visit 8
--- NOTE | 2025-03-28 16:42 | PTOPREEVAL ---
Assessment and note entered by Erik Yepez PT Evaluation Information Assessment Status Re-evaluation Diagnosis Back pain ICD-10 Condition Codes (PT) Pain in low back M54.50 Other ICD-10 Condition Codes ( M79.672 M79.671 PT) Onset chronic Subjective Information Pt notes she has noticed a progressive increase in lower back pain and has had various x rays to rule out ankylosing spondylitis, OA and disc degenerations were noted. Pt saw padded box sewer and believes back pain is MSK system related and to seek physical therapy services. Pt notes increased pain prolonged sitting/standing and pain is localized in L side of lower back. Reported Pain Level Pain Score 1: Self Report Assessment PT Clinical Summary Pt was evaluated today to add recurrent back pain into her current treatment plan. Upon examination Patient demonstrates hip weakness, low back and SI joint region pain, decreased mobility, that limit their ability to perform activities of daily living and functional movements. Patient will benefit from skilled physical therapy to address the above listed deficits and return to prior level of function. Home exercise program instructed and written handout provided, exercises tolerated well with no adverse effects to note post-session. Pt will be seen for follow ups to address deficits found today and from initial evaluation for Mango foot pain. Plan of Care Interventions Electrical Stimulation,Gait Training,Manual Therapy,Neuro Re-education,Paraffin Bath, Therapeutic Activities,Therapeutic Exercise,Self- Care/Home Management,Other PT Services Indicated Yes These treatments will address the objective and functional deficits as defined above. The patient will be advanced safely and appropriately in order for the patient to progress towards his/her prior level of function. Additional exercises will be introduced and as well as a comprehensive home exercise program upon discharge, if needed, ?to ensure carryover of functional gains achieved in the clinic. This treatment plan has been reviewed and agreement upon by the patient.
--- NOTE | 2025-04-18 16:21 | PTOPPROG ---
Assessment and note entered by Erik Yepez PT Evaluation Information Assessment Status Progress Diagnosis Biil ankle pain , Back pain ICD-10 Condition Codes (PT) Pain in low back M54.50,Pain in right ankle and joints of right foot M25.571,Pain in left ankle and joints of left foot M25.572 Other ICD-10 Condition Codes ( M79.672 M79.671 PT) Onset chronic Subjective Information Pt states that she has noticed steady improvements in her low back pain. Pt notes her ankles have been bothering her a little more and thinks the injection may be wearing off. Pt notes she felt she is about 15% better since starting physical therapy with a little bit more strength and mobility. Pt notes she still feels limited with ankle instability and weakness. Assessment PT Clinical Summary Patient's conditions of low back pain and Mango ankle pain have improved overall as evidenced by advancements in symptoms, mobility, strength, and overall functional use of the extremity. However, some limitations are still present most notably in ankle stability and functional strength causing increased risk for ankle sprains. Patient would benefit from continued skilled physical therapy services to address the above listed impairments and facilitate a return to their prior level of function. Plan of Care Interventions Electrical Stimulation,Gait Training,Manual Therapy,Neuro Re-education,Paraffin Bath, Therapeutic Activities,Therapeutic Exercise,Self- Care/Home Management,Other PT Services Indicated Yes These treatments will address the objective and functional deficits as defined above. The patient will be advanced safely and appropriately in order for the patient to progress towards his/her prior level of function. Additional exercises will be introduced and as well as a comprehensive home exercise program upon discharge, if needed, ?to ensure carryover of functional gains achieved in the clinic. This treatment plan has been reviewed and agreement upon by the patient.
--- NOTE | 2025-06-05 16:25 | PTOPDC ---
Assessment and note entered by Erik Yepez, PT Evaluation Information Assessment Status Discharge Diagnosis Biil ankle pain , Back pain ICD-10 Condition Codes (PT) Pain in low back M54.50,Pain in right ankle and joints of right foot M25.571,Pain in left ankle and joints of left foot M25.572 Other ICD-10 Condition Codes ( M79.672 M79.671 PT) Onset chronic Subjective Information Pt states she feels 75% recovered. She still has occasional sharp pains in her R ankle and dull ache in her low back. Pt states she has made good functional improvements in therapy and plans to continue exercises at home. Reported Pain Level Pain Score 1,1,1: Self Report Assessment PT Clinical Summary Patient's ankle stability and lower back pain has improved overall as evidenced by advancements in symptoms, mobility, strength, and overall functional use of the extremity. Patient has met most of her therapy goals and is pleased with progress made towards the remaining goals. Patient to discharge from physical therapy this date and continue with updated home exercise program as instructed. Patient to contact physical therapist or primary care provider if questions or concerns arise. Plan of Care PT Services Indicated No
== END 2025-06-12 14:10 | disposition home or self-care (01) ==
LOC: ANHGOSHPT 15:30
PROVIDERS: PCP Nurse Practitioner Family; Visit Provider Podiatrist Foot & Ankle Surgery
DX: M79.672 Pain in left foot (principal); M79.671 Pain in right foot; R26.2 Difficulty in walking, not elsewhere classified
CPT/HCPCS: 97016; 97110; 97112; 97140; 97161; 97164; 97530

== ENCOUNTER 2025-09-04 14:37 | Outpatient (CLI) | payer BC, SELFPAY ==
--- OUTSIDE RECORDS SUMMARY | 2025-09-04 14:41 | XMS_ITS | Encounter Summary ---
Author Organization [facility] Address [address] [place], [place] [address] [address] Care Team Providers Care Contract Project Manager Name Role Phone Liyah Valiente MD Primary Care Provider Encounter Details Date Type Department Care Team (Late st Contact Info) Description 09/22/2022 Lab Requisition [facility] [address] [place] [address] Dimitry Rocha MD [address] [place] [address] Social History Tobacco Use Types Packs/Day Years Used Date Smoking Tobacco: Never Assessed Comments Unknown Sex and Gender Information Value Date Recorded Sex Assigned at Not on file 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 Gender Identity Not on file Sexual Orientation Not on file documented as of this encounter Plan of Treatment Not on file documented as of this encounter Procedures Procedure Name Priority Date/Time Associated Diagnosis Comments DERMATOPATHOLOGY Routine 09/20/2022 12:0 0 AM SPOOLING OPERATOR documented in this encounter Results * DERMATOPATHOLOGY (09/20/2022 12:00 AM SPOOLING OPERATOR) Case Report Dermatopathology Report Case: [id number] Authorizing Provider: Dimitry Rocha MD Collected: 09/20/2022 12:00 AM Ordering Location: [facility] Received: 09/22/2022 06:07 AM Pathologist: Kathleen Eubanks MD Specimen: Skin, left post shoulder 3:17 PM SPOOLING OPERATOR DERMATOPATHOLOGY LABORATORY Final Diagnosis Specimen A. SKIN, left post shoulder: COMPOUND MELANOCYTIC NEVUS, IRRITATED (D22.62) (see microscopic description) 2 3:17 PM [facility] DERMATOPATHOLOGY LABORATORY at [address]17 SPOOLING OPERATOR Clinical History Neoplasm vs. Benign nevi 2 3:17 PM [facility] DERMATOPATHOLOGY [facility]ORATORY Gross Description Specimen A: Received is one formalin filled container labeled with the patient's name and designated left post shoulder. The specimen consists of a shave biopsy measuring 4x4x1 mm. Jar 0. 2 3:17 PM [facility] DERMATOPATHOLOGY LABORATORY Microscopic Description Specimen A. [...] Anusha Nuñez who agrees. 2 3:17 PM [facility] DERMATOPATHOLOGY LABORATORY Disclaimer An external and internal positive and negative controls are appropriate for the histochemical, immunohistochemical and immunofluorescence stain(s) in this case (if any), except where stated explicitly. The performance characteristics of the stain(s) cited in this report were developed and its performance characteristic determined by the Dermatopathology Laboratory at [facility], directed by Dr. Justin Trejo. These tests need not be, and therefore are not, approved by the [place] Food and Drug Administration. The tests are used for clinical purposes. Billing Codes Specimen Charges Stain Charges 84682 1 31184 [id number] 72696 1 1 1 2 3:17 PM [facility] DERMATOPATHOLOGY LABORATORY Embedded Images 2 3:17 PM [facility] DERMATOPATHOLOGY LABORATORY Pathology/Cytolog y TISSUE SPECIMEN FROM SKIN / Unknown 09/20/2022 09/22/2022 6:07 AM [facility] us Dimitry Rocha MD LAB - PATHOLOGY/CYTOLOGY ORDERAB LES Final Result DERMATOPATHOLOGY LABORATORY [facility] - Department of Dermatology [address] [phone] documented in this encounter Visit Diagnoses Not on filedocumented in this encounter Care Teams Contract Project Manager Relationship Specialty Start Date End Date Liyah Valiente MD [address] [place] [address] PCP - General 11/19/22 documented as of this encounter
--- OUTSIDE RECORDS SUMMARY | 2025-09-04 14:41 | XMS_ITS | Encounter Summary ---
Author Organization [facility] Address 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 Report feedback to Dr. Morrissey. <<<<<<<< TRIAGE NOTE >>>>>>>> Triage Note: Tie Man Estrellita Dolan added this note on Dec 22 2015 9:59AM: I verified that the patients provider was in network and that a mammogram can be ordered to the [facility]. Patient stated that they would call the office and get that scheduled. <<<<<<<< TRIAGE/OUTCOME >>>>>>>> Guideline Title: [employer] [facility] Recommended Disposition: Current Physician Network Status Original Inclination: Self Management Intended Action: Self Management Physician Contacted: No Patient's current physician is in the [facility] network ? YES documented in this encounter Plan of Treatment Not on file documented as of this encounter Visit Diagnoses Not on filedocumented in this encounter Care Teams Automotive Airconditioning Mechanic Relationship Specialty Start Date End Date Lana Astorga MD PCP - General Family Practice 01/07/21 documented as of this encounter
--- OUTSIDE RECORDS SUMMARY | 2025-09-04 14:41 | XMS_ITS | Clinical Summary ---
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
--- OUTSIDE RECORDS SUMMARY | 2025-09-04 14:41 | XMS_ITS | Clinical Summary ---
Author Organization [facility] Address [facility] [place] [address] Care Team Providers Care Automatic Spreader Operator Name Role Phone Liyah Valiente MD Primary Care Provider Source Comments [facility],non-owned Affiliates and Associated Physician Practices is amultiple site organization consisting of ambulatory clinics and hospital sitesin [place], [place], [place] and [place]. This disclosure is being madepursuant to the Care Everywhere program and may not contain all information available regarding this patient. 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
[2025-09-04 18:16] LABS: Add Urine Microscopic? NO; Appearance Urine Clear (Clear); Glucose Urine UA Negative (Negative); Leukocyte Esterase Ur Negative LEU/UL (Negative); Nitrate Urine Negative (Negative); Specific Grav Ur 1.015 (1.001-1.035)
[2025-09-04 18:30] LABS: Alanine Aminotransferase 25 U/L (6-35); Albumin Level 4.6 g/dL (3.5-5.1); Alkaline Phosphatase 84 U/L (38-126); Anion Gap 7 mmol/L (4-12); Aspartate Amino Transferase 29 U/L (14-36); Bilirubin,Total 0.5 mg/dL (0.2-1.3); Blood Urea Nitrogen 19 mg/dL (7-17); CRP 1.3 mg/dL (<1.0); Calcium 10.1 mg/dL (8.4-10.2); Carbon Dioxide 29 mmol/L (22-30); Chloride 102 mmol/L (98-107); Estimated Glomerular Filt Rate > 60; Glucose 89 mg/dL (65-110); Potassium 4.9 mmol/L (3.4-5.0); Sodium 138 mmol/L (137-145); Total Protein 7.9 g/dL (6.3-8.2)
[2025-09-04 18:34] LABS: Hematocrit 41.1 % (37.0-47.0); Hemoglobin 13.4 g/dL (12.0-15.0); Immature Granulocyte Percent A 0.3 % (0-0.5); Lymphocytes Absolute Auto 1.88 K/mm3 (0.9-3.2); Mean Corpuscular HGB Conc 32.6 g/dl (32-36); Mean Corpuscular Hemoglobin 28.7 pg (26-34); Mean Corpuscular Volume 88.0 fl (80-100); Nucleated Red Blood Cells Absolute Auto 0.000 K/mm3 (0.0-0.012); Nucleated Red Blood Cells Perc 0.0 % (0.0-0.2); Platelet Count Result 241 k/mm3 (150-375); Red Blood Count 4.67 M/mm3 (4.2-5.4); White Blood Count 7.4 K/mm3 (4.5-10.0)
== END 2025-09-04 14:38 | disposition home or self-care (01) ==
LOC: ANHGOSHLAB 14:38
PROVIDERS: PCP Family Medicine; Visit Provider Internal Medicine
DX: M47.816 Spondylosis without myelopathy or radiculopathy, lumbar region (principal)
CPT/HCPCS: 36415; 80053; 81003; 85025; 85652; 86140